=== PATIENT | male | born 1955 | race Caucasian/White ===

== ENCOUNTER → 2016-09-10 | Outpatient (CLI) | payer OTHER ==
[~2016-09-10] MED LIST: ADVINUNK INH; ALBU1AER9 INH; ALL300 PO; AVD5 PO; CLC100 PO; CLC6 PO; GLC500 PO; MTRUNK PO; PRCUNK PO; SIMV40TA2 PO
[2016-09-10 09:32] LABS: BASO % 0.7 %; BASO ABS # 0.03 K/uL (0-0.2); COMPLETE YES; EOS % 6.3 %; HEMATOCRIT 41.3 % (42-52); IG% 0.2 %; LYMPH ABS # 0.78 K/uL (1.2-3.4); MEAN CELL VOLUME 90.6 fL (80-100); MEAN CORPUSCULAR HEMOGLOBIN 29.8 pg (25-34); MEAN CORPUSCULAR HGB CONC 32.9 g/dl (32-36); MEAN PLATELET VOLUME 9.8 fL (7.4-10.4); MONO % 8.3 %; NEUT % 67.5 %; PLATELET COUNT 231 K/uL (130-400); RED BLOOD COUNT 4.56 M/uL (4.7-6.1); WHITE BLOOD COUNT 4.58 K/uL (4.8-10.8)
[2016-09-10 09:44] LABS: ALT/SGPT 22 U/L (12-78); AST/SGOT 17 U/L (15-37); BLOOD UREA NITROGEN 21 mg/dl (7-18); BUN/CREATININE RATIO 22.1 (10-20); CARBON DIOXIDE 26 mmol/L (21-32); CHLORIDE 106 mmol/L (98-107); CHOLESTEROL 140 mg/dl (0-200); CREATININE 0.94 mg/dl (0.60-1.40); GLUCOSE 157 mg/dl (70-99); POTASSIUM 4.3 mmol/L (3.5-5.1); SODIUM 140 mmol/L (136-145); TRIGLYCERIDES 124 mg/dl (0-150); URIC ACID 4.2 mg/dl (2.6-7.2); VERY LOW DENSITY LIPOPROT CALC 25 mg/dl
[2016-09-10 09:45] LABS: ALB/GLOB RATIO 1.2 (0.9-2); ALKALINE PHOSPHATASE 61 U/L (45-117); CHOLESTEROL/HDL RATIO 2.9; HDL CHOLESTEROL 48 mg/dl; LDL CHOLESTEROL CALCULATED 67 mg/dl
[2016-09-10 09:49] LABS: ESTIMATED AVERAGE GLUCOSE 157 mg/dl; HA1C FLAG Normal (Normal)
[2016-09-10 09:54] LABS: CALCIUM 8.8 mg/dl (8.5-10.1)
[2016-09-10 10:09] LABS: RATIO 4.7 mcg/mg (0-30.0)
== END | disposition home or self-care (01) ==
LOC: C.LAB 08:19
PROVIDERS: ATTEND Internal Medicine Pulmonary Disease
DX: J45.909 Unspecified asthma, uncomplicated (principal); J30.9 Allergic rhinitis, unspecified; M10.00 Idiopathic gout, unspecified site; E11.9 Type 2 diabetes mellitus without complications; E78.5 Hyperlipidemia, unspecified

== ENCOUNTER → 2017-03-15 | Outpatient (CLI) | payer OTHER ==
[2017-03-15 10:23] LABS: ESTIMATED AVERAGE GLUCOSE 151 mg/dl; HA1C FLAG Normal (Normal)
[2017-03-15 10:31] LABS: ALKALINE PHOSPHATASE 63 U/L (45-117); ALT/SGPT 23 U/L (12-78); AST/SGOT 14 U/L (15-37); BLOOD UREA NITROGEN 14 mg/dl (7-18); BUN/CREATININE RATIO 15.6 (10-20); CALCIUM 8.6 mg/dl (8.5-10.1); CARBON DIOXIDE 28 mmol/L (21-32); CHLORIDE 104 mmol/L (98-107); CREATININE 0.91 mg/dl (0.60-1.40); GLUCOSE 153 mg/dl (70-99); HDL CHOLESTEROL 48 mg/dl; POTASSIUM 4.1 mmol/L (3.5-5.1); SODIUM 137 mmol/L (136-145)
[2017-03-15 10:37] LABS: CHOLESTEROL 154 mg/dl (0-200); CHOLESTEROL/HDL RATIO 3.2; LDL CHOLESTEROL CALCULATED 63 mg/dl; TRIGLYCERIDES 213 mg/dl (0-150); VERY LOW DENSITY LIPOPROT CALC 43 mg/dl
== END | disposition home or self-care (01) ==
LOC: C.LAB 07:17
PROVIDERS: ATTEND Internal Medicine Pulmonary Disease
DX: D86.9 Sarcoidosis, unspecified (principal); E11.9 Type 2 diabetes mellitus without complications; E78.5 Hyperlipidemia, unspecified; J30.9 Allergic rhinitis, unspecified

== ENCOUNTER → 2017-05-20 | Outpatient (CLI) | payer OTHER ==
[2017-05-20 09:56] LABS: BLOOD UREA NITROGEN 15 mg/dl (7-18); CREATININE 0.86 mg/dl (0.60-1.40)
== END | disposition home or self-care (01) ==
LOC: C.LAB 07:14
PROVIDERS: ATTEND Urology
DX: R97.20 Elevated prostate specific antigen [PSA] (principal)

== ENCOUNTER → 2017-05-31 | Outpatient (CLI) | payer OTHER ==
[~2017-05-31] MED LIST changes: +GADAVIST IV PRN
--- NOTE | 2017-05-31 13:22 | DIAGNOSTIC IMAGING REPORT ---
PROSTATE MRI COMBO CLINICAL HISTORY: 62 years-old Male presenting with R97.20. PSA 4 ng/mL. TECHNIQUE: Multisequence, multiplanar MR imaging of the prostate was performed before and after the administration of intravenous contrast. Additional postprocessing was performed on a separate NuORDER workstation by the radiologist for 3-D volumetric segmentation of the prostate and contouring of region(s) of interest (JERRY) for targeting. IV contrast: 7 cc intravenous Gadavist COMPARISON: None. FINDINGS: Prostate: The prostate measures 4.6 x 3.6 x 3.9 cm (DynaCAD prostate boundary segmentation volume 34.6 mL). Moderate changes of benign prostatic hyperplasia. Precontrast T1 weighted imaging demonstrates no evidence of intrinsic T1 hyperintensity to suggest hemorrhage. Suspicious lesion(s) described below: Lesion (DynaCAD JERRY) 1: Location: Bilateral posteromedial peripheral zone at the apex. Midline lesion Size: 14 mm (as measured on ADC for PZ lesion and T2WI for TZ lesion) T2W: 4. Circumscribed, homogeneous moderately hypointense lesion. The lesion abuts the prostatic capsule DWI: 4. Focal markedly hypointense on ADC and markedly hyperintense on high b-value DWI. DCE: Positive. Focal enhancement corresponding to a suspicious finding, earlier or contemporaneous with adjacent normal tissue. PI-RADS: 4. Clinically significant cancer is likely to be present. Seminal vesicles normal. Bladder: Normal. Bowel: Visualized portion of the rectum normal. Peritoneum: No free fluid in the pelvis. Lymph nodes: No lymphadenopathy in the visualized portion of the pelvis. Vasculature: Iliac vessels patent. Abdominal wall: Normal. Osseous structures: Normal bone marrow signal intensity. IMPRESSION: 1. 14 mm mm lesion in the midline posterior peripheral zone at the apex. PI-RADS: 4. Clinically significant cancer is likely to be present. This lesion has been segmented for targeted biopsy. 2. Benign prostatic hyperplasia. Electronically signed by: Francisco Javier Colin M.D. 05/31/2017 1:20 PM Dictated Date/Time: 05/31/2017 12:56 PM
== END ==
LOC: C.MRIBC 10:52
PROVIDERS: ATTEND Urology
DX: R97.20 Elevated prostate specific antigen [PSA] (principal); N40.0 Benign prostatic hyperplasia without lower urinary tract symptoms

== ENCOUNTER → 2017-07-15 | Outpatient (CLI) | payer OTHER ==
[~2017-07-15] MED LIST changes: -GADAVIST IV PRN
== END | disposition home or self-care (01) ==
LOC: C.PATHSPEC 17:35
PROVIDERS: ATTEND Urology
DX: C61 Malignant neoplasm of prostate (principal)

== ENCOUNTER → 2017-08-02 | Outpatient (CLI) | payer OTHER ==
--- NOTE | 2017-08-02 11:41 | DIAGNOSTIC IMAGING REPORT ---
WHOLE-BODY NUCLEAR BONE SCAN CLINICAL HISTORY: Prostate cancer. COMPARISON STUDY: Abdominal CT dated 07/18/2013.. TECHNIQUE: Three hours following the IV administration of 24.4 mCi of technetium 99m MDP, whole body nuclear bone scan was performed in the anterior and posterior projections. FINDINGS: There is no abnormal osseous tracer deposition identified typical in appearance for bony metastatic disease. Typically degenerative uptake is identified in the shoulders, hips, knees, ankles, and metatarsophalangeal joints. There is expected excreted activity within the renal collecting system and bladder. A small amount of extravasated tracer is noted in the left vertebral fossa. IMPRESSION: There is no abnormal tracer deposition identified typical in appearance for osseous metastatic disease. Electronically signed by: Ifeanyi Mora M.D. 08/02/2017 11:40 AM Dictated Date/Time: 08/02/2017 11:36 AM
== END | disposition home or self-care (01) ==
LOC: C.NUCL 07:49
PROVIDERS: ATTEND Urology
DX: C61 Malignant neoplasm of prostate (principal)

== ENCOUNTER 2017-08-26 07:51 | Inpatient (IN) | payer OTHER ==
--- NOTE | 2017-08-10 10:52 | History and Physical: Surg Cnt ---
History & Physical Date August 10, 2017. (Mohini Iniguez PA-C) Chief Complaint Preoperative clearance for robotic prostatectomy (Mohini Iniguez PA-C) History of Present Illness Pt. is a 62 y.o. male who was recently diagnosed with prostate cancer and is following with Urology. He is scheduled for a robotic prostatectomy, possible open, possible lymph node dissection and suprapubic tube placement. He presents for preoperative clearance. He has had prior surgery without complication. He has tolerated anesthesia well in past. He has no personal or family history of thromboembolic complication. Does carry history of asthma which is controlled with Dulera. He rarely uses a rescue inhaler. In May after dust exposure he did develop asthma symptoms which she treated with a steroid pack. He has had no ER visits or hospitalizations associated with his asthma. His ROS is positive today for urinary hesitancy, occasional SOB due to asthma, and a sore left shoulder. He denies fever, chills, appetite changes, weight loss, cough, chest pain, abdominal pain, nausea, vomiting, numbness/tingling, lower extremity edema, skin changes, bleeding problems, or mood disturbance. (Mohini Iniguez PA-C) Past Medical/Surgical History Allergic rhinitis, asthma, BPH, dyslipidemia, esophageal reflux, Schatzki's ring , osteoarthritis, nephrolithiasis, gout, sarcoidosis, and type 2 DM. (Mohini Iniguez PA-C) Additional History Hepatic Disease: No Endocrine Disorder: Yes Kidney Disease: Yes Hypertension: No Heart Disease: No Bleeding Tendencies: No Infectious Diseases: No Other: Endocrine: DM controlled with oral medications Kidney Diesease: history of nephrolithiasis (Mohini Iniguez PA-C) Allergies Coded Allergies: Penicillins (Verified Allergy, Unknown, 05/17/09) Shellfish (Verified Allergy, Unknown, anaphylaxis, 08/10/17) Home Medications Scheduled Albuterol (Proair Hfa), 1 DOSE INH PRN Allopurinol (Zyloprim *), 300 MG PO DAILY Cyclobenzaprine Hcl (Flexeril), 1 TAB PO TID Glipizide (Glipizide Er), 1 TAB PO DAILY Metformin Hcl (Glucophage), 1 TAB PO BID Mometasone Furoate-Formoterol (Dulera 200/5 Mcg), 2 PUFFS INH BID Simvastatin (Zocor), 40 MG PO QPM Miscellaneous Medications Finasteride (Finasteride) Social History Smoking Status: Never Smoker Alcohol Use: socially (Mohini Iniguez PA-C) Physical Examination Skin: warm/dry, no rash Head: normocephalic, atraumatic Neck: supple, no adenopathy, trachea midline Respiratory/Chest: lungs clear, normal breath sounds, no respiratory distress Cardiovascular: regular rate, rhythm, no edema, no murmur Abdomen / GI: normal bowel sounds, non tender Back: normal inspection Extremities: normal inspection, normal range of motion Neurologic/Psych: no motor/sensory deficits, alert, normal reflexes, oriented x 3 Addiitonal Comments: Pt. is a 62 y.o. male who presents for preoperative clearance for robotic prostatectomy on 08/26/[address] Patel. From a medical standpoint he is cleared for surgery as he is considered an acceptable and there is no absolute contraindication. He does have a history of asthma which is well controlled with Dulera and he rarely uses a rescue inhaler but he should be monitored closely for any breathing problems. (Mohini Iniguez PA-C) Diagnosis Preoperative clearance Prostate CA (Mohini Iniguez PA-C) Operation Robotic Prostatectomy (Mohini Iniguez PA-C)
[2017-08-13 08:11] VITALS: BMI 26.0
--- NOTE | 2017-08-13 08:46 | PAT Medication Instructions ---
Service Date August 13, 2017. Current Home Medication List Albuterol Hfa (Ventolin Hfa), 2 PUFFS INH Q6H PRN for PRN Allopurinol (Zyloprim), 300 MG PO QAM Finasteride (Finasteride), 5 MG PO QPM Glipizide (Glipizide Er), 1 TAB PO QPM Ibuprofen Tab (Advil), 200-600 MG PO PRN Metformin Hcl (Glucophage), 1 TAB PO BID Mometasone Furoate-Formoterol (Dulera 200/5 Mcg), 2 PUFFS INH BID Simvastatin (Zocor), 20 MG PO QAM Medication Instructions For Your Scheduled Surgery - Hold the following medications 7-10 days prior to surgery per your surgeon's instructions: Ibuprofen Tab (Advil), 200-600 MG PO PRN - Hold the following medications the morning of surgery: Metformin Hcl (Glucophage), 1 TAB PO BID - Take the following medications the morning of surgery with a sip of water: Albuterol Hfa (Ventolin Hfa), 2 PUFFS INH Q6H PRN for PRN (if needed, and bring it with you to the hospital) Allopurinol (Zyloprim), 300 MG PO QAM Mometasone Furoate-Formoterol (Dulera 200/5 Mcg), 2 PUFFS INH BID Simvastatin (Zocor), 20 MG PO QAM - Take the following medications as scheduled the night before surgery: Albuterol Hfa (Ventolin Hfa), 2 PUFFS INH Q6H PRN for PRN (if needed) Finasteride (Finasteride), 5 MG PO QPM Glipizide (Glipizide Er), 1 TAB PO QPM Metformin Hcl (Glucophage), 1 TAB PO BID Mometasone Furoate-Formoterol (Dulera 200/5 Mcg), 2 PUFFS INH BID If you have any questions please call us at [phone] or [phone] or [phone]
--- NOTE | 2017-08-13 09:34 | DIAGNOSTIC IMAGING REPORT ---
CHEST 2 VIEWS ROUTINE CLINICAL HISTORY: PAT preoperative evaluation COMPARISON STUDY: 10/09/2012 FINDINGS: Slight chronic interstitial prominence left base considered unaltered from the prior study. Lungs otherwise appear clear. Diaphragms are smooth. IMPRESSION: Negative chest. The above report was generated using voice recognition software. It may contain grammatical, syntax or spelling errors. Electronically signed by: Oskar Amaya M.D. 08/13/2017 9:33 AM Dictated Date/Time: 08/13/2017 9:33 AM
[2017-08-13 10:11] LABS: BASO % 0.9 %; BASO ABS # 0.04 K/uL (0-0.2); EOS % 6.5 %; EOS ABS # 0.29 K/uL (0-0.5); HEMOGLOBIN 12.9 g/dL (14.0-18.0); IG# 0.01 K/uL (0.00-0.02); LYMPH % 16.6 %; LYMPH ABS # 0.74 K/uL (1.2-3.4); MEAN CELL VOLUME 90.5 fL (80-100); MEAN CORPUSCULAR HEMOGLOBIN 30.7 pg (25-34); MEAN CORPUSCULAR HGB CONC 33.9 g/dl (32-36); MEAN PLATELET VOLUME 9.6 fL (7.4-10.4); MONO % 10.3 %; MONO ABS # 0.46 K/uL (0.11-0.59); NEUT % 65.5 %; NEUT ABS # 2.92 K/uL (1.4-6.5); PLATELET COUNT 196 K/uL (130-400); RED CELL DISTRIBUTION WIDTH CV 13.5 % (11.5-14.5); RED CELL DISTRIBUTION WIDTH SD 44.2 fL (36.4-46.3); WHITE BLOOD COUNT 4.46 K/uL (4.8-10.8)
[2017-08-13 11:31] LABS: CALCIUM 9.3 mg/dl (8.5-10.1); CREATININE 0.84 mg/dl (0.60-1.40); POTASSIUM 4.6 mmol/L (3.5-5.1)
[2017-08-25 16:08] VITALS: BP 149/85; PULSE 73; TEMP 36.3; O2SAT 98
[2017-08-26] VITALS (7 sets, daily range): BP systolic 86–149; BP diastolic 73–91; PULSE 73–85; TEMP 36.3–36.5; O2SAT 96–99; Ht 167.6 cm; Wt 75.1 kg
[~2017-08-26] VITALS: Ht 167.6 cm; Wt 75.1 kg
[~2017-08-26 07:51] MED LIST changes: +ACETAMINOPHEN 1000 MG/100 ML IV IV SCH; -ADVINUNK INH; -ALBU1AER9 INH; -ALL300 PO; +ALLO300T2 PO; +ATROPINE SULFATE 0.1 MG/ML 5ML SYR IV PRN; -AVD5 PO; +CEFAZOLIN 2000MG IV PUSH 15 ML IV SCH; +CEFAZOLIN: ALLERGY NOTED TO ORDERED MEDICATION SCH; -CLC100 PO; -CLC6 PO; +EpHEDrine SULFATE INJ 50 MG/ML AMP IV PRN; +FLUMAZENIL 0.1 MG/1 ML 10 ML VIAL IV PRN; -GLC500 PO; +GLIP-199 PO; +HEPARIN SOD 5000 UNIT/0.5 ML CARP SQ SCH; +HYDROmorphone INJ 0.5 MG/0.5 ML SYR IV PRN; +IBUP-103 PO; +LABETALOL HCL IV 5 MG/ML 20ML IV PRN; +LACTATED RINGER'S 1000ML 1,000 ML IV SCH; +MEPERIDINE HCL 25 MG/ML CARP IV PRN; +METF1000 PO; +MOME200A INH; -MTRUNK PO; +MoRPHine SULFATE 10 MG/ML CARP/VIAL IV PRN; +NALOXONE HCL 0.4 MG/1 ML VIAL/CARP IV PRN; +ONDANSETRON INJ 2 MG/ML 2 ML VIAL IV PRN; +PHENYLEPHRINE 100MCG/ML 5ML SYR IV PRN; -PRCUNK PO; +PRS5 PO; +SIMV20TA2 PO; -SIMV40TA2 PO; +VNTHFA/IN INH
[2017-08-26] MEDS ORDERED: ONDANSETRON INJ 2 MG/ML 2 ML VIAL ONE ×2 (08:38→14:16)
[2017-08-26] MEDS ORDERED: FENTANYL CITRATE INJ 50 MCG/1 ML 2 ML VIAL ONE ×3 (08:38→10:46)
[2017-08-26] MEDS ORDERED: LIDOCAINE HCL 2% 2 ML VIAL (20MG/ML) ONE (08:38)
[2017-08-26] MEDS ORDERED: DEXAMETHASONE SOD INJ 4 MG/ML VIAL ONE (08:38)
[2017-08-26] MEDS ORDERED: PROPOFOL IV EMULSION 10 MG/ML 20 ML VIAL ONE (08:38)
[2017-08-26] MEDS ORDERED: ROCURONIUM BROMIDE 10 MG/ML 5 ML VIAL ONE ×3 (08:38→12:14)
[2017-08-26] MEDS ORDERED: MIDAZOLAM HCL 1 MG/ML 2ML VIAL ONE (08:39)
--- NOTE | 2017-08-26 09:04 | History & Physical Bridge Note ---
H&P Re-Evaluation Bridge Note: I have examined the patient, reviewed the History & Physical and in the interval since the performance of the History & Physical I have noted the following changes of clinical significance: No changes noted
[2017-08-26] MEDS ORDERED: BUPIVACAINE 0.5 % 5 MG/1 ML MPF 30ML VIAL ONE (09:24)
[2017-08-26] MEDS ORDERED: HYDROmorphone INJ 2 MG/ML SYR/VIAL ONE (10:11)
[2017-08-26] MEDS ORDERED: FLOSEAL HEMOSTATIC MATRIX 10ML TOP ONE (12:42)
--- NOTE | 2017-08-26 13:07 | [facility] Post Operative Brief Note ---
Immediate Operative Summary Operative Date August 26, 2017. Pre-Operative Diagnosis Prostate Cancer Post-Operative Diagnosis Prostate Cancer Procedure(s) Performed Robotic assisted laparoscopic prostatectomy with bilateral pelvic lymph node dissection and insertion of suprapubic tube Surgeon Dr. Td Patel MD Newspaper Photojournalist Surgeon(s) VIVIAN Peguero Estimated Blood Loss 250ml Findings Consistent with Post-Op Diagnosis Specimens A. Minerva-prostatic fat B. Prostate and seminal vessicles C. Right pelvic lymph node D. Left pelvic lymph node Drains #10 KRISTA, 18 fr dotson, 16 fr SPT Anesthesia Type General Complication(s) none Disposition Accompanied Pt To Recover: no Disposition: Recovery Room / PACU
[2017-08-26] MEDS ORDERED: LABETALOL HCL IV 5 MG/ML 20ML ONE ×3 (13:20→13:39)
[2017-08-26] MEDS ORDERED: ONDANSETRON INJ 2 MG/ML 2 ML VIAL IV PRN (13:30)
[2017-08-26] MEDS ORDERED: HYDROmorphone INJ 0.5 MG/0.5 ML SYR IV PRN (13:30)
[2017-08-26] MEDS ORDERED: KETOROLAC TROMETHAMINE 30 MG/ML VIAL IV. PRN (13:30)
[2017-08-26] MEDS ORDERED: ALBUTEROL HFA 8 GM INHALER INH PRN (13:30)
[2017-08-26] MEDS ORDERED: OXYBUTYNIN CHLORIDE 5 MG TAB PO PRN (13:30)
[2017-08-26] MEDS ORDERED: HYDROmorphone INJ 0.5 MG/0.5 ML SYR ONE (13:39)
[2017-08-26] MEDS ORDERED: PHARMACY GLYCEMIC MGMT CONSULT PRN (14:04)
[2017-08-26] MEDS ORDERED: NovoLIN-R INSULIN PER UNIT CHARGE SQ STA (14:13)
--- NOTE | 2017-08-26 14:42 | Anesthesiology Progress Note ---
Anesthesia Post Op Note Date & Time August 26, 2017 at 14:42 Vital Signs Pain Intensity: 5 Vital Signs Past 12 Hours Date Time Temp Pulse Resp B/P (MAP) Pulse Ox O2 Delivery O2 Flow Rate FiO2 08/26/17 14:23 76 24 98 08/26/17 14:23 76 24 08/26/17 14:21 143/80 08/26/17 14:18 74 16 08/26/17 14:18 73 16 98 08/26/17 14:17 159/101 08/26/17 14:13 71 16 98 08/26/17 14:13 70 16 08/26/17 14:11 152/85 08/26/17 14:08 71 16 95 08/26/17 14:08 72 16 08/26/17 14:07 70 16 08/26/17 14:07 70 16 97 08/26/17 14:06 142/86 08/26/17 14:02 69 16 08/26/17 14:02 70 16 98 08/26/17 14:01 145/88 08/26/17 13:57 64 16 97 08/26/17 13:57 64 16 08/26/17 13:56 164/93 08/26/17 13:52 70 16 08/26/17 13:52 69 16 94 08/26/17 13:51 167/88 08/26/17 13:47 66 16 98 08/26/17 13:47 65 16 08/26/17 13:46 183/90 08/26/17 13:42 73 16 08/26/17 13:42 76 16 100 08/26/17 13:41 185/95 08/26/17 13:37 76 15 18 13:37 77 15 100 18 13:36 201/98 18 13:34 204/99 08/26/17 13:32 73 12 100 18 13:32 72 12 18 13:31 201/92 18 13:27 72 16 98 18 13:27 73 16 18 13:25 194/77 08/26/18 13:22 84 18 100 18 13:22 84 18 18 13:21 184/104 18 13:19 191/103 08/26/17 13:17 36.8 82 14 182/104 99 Oxymask 10 08/26/17 13:17 81 16 08/26/17 13:17 81 16 99 08/26/17 08:27 36.5 82 20 86/ (28) 97 Room Air Notes Mental Status: alert / awake / arousable, participated in evaluation Pt Amnestic to Procedure: Yes Nausea / Vomiting: adequately controlled Pain: adequately controlled Airway Patency, RR, SpO2: stable & adequate BP & HR: stable & adequate Hydration State: stable & adequate Anesthetic Complications: no major complications apparent
[2017-08-26 14:48] LABS: HEMATOCRIT 36.7 % (42-52); HEMOGLOBIN 12.7 g/dL (14.0-18.0); MEAN CELL VOLUME 89.7 fL (80-100); MEAN CORPUSCULAR HEMOGLOBIN 31.1 pg (25-34); MEAN PLATELET VOLUME 9.1 fL (7.4-10.4); PLATELET COUNT 230 K/uL (130-400); RED CELL DISTRIBUTION WIDTH CV 13.5 % (11.5-14.5); RED CELL DISTRIBUTION WIDTH SD 43.9 fL (36.4-46.3); WHITE BLOOD COUNT 10.69 K/uL (4.8-10.8)
[2017-08-26 14:51] LABS: MEAN CORPUSCULAR HGB CONC 34.6 g/dl (32-36)
--- NOTE | 2017-08-26 15:05 | Pharmacy Progress Note ---
Pharmacy Glycemic Short Note 2 Date of Service August 26, 2017. OUTPATIENT ANTIDIABETIC REGIMEN: * Glipizide ER 10mg PO qPM * Metformin 1000mg PO BID * HbA1c: pending w/ am labs (6.9% 03/15/17) ASSESSMENT: * Mr Ricci is a 62yo type 2 diabetic male, POD #0 s/p prostatectomy. * BSG was significantly elevated in PACU, so SQ dose of Regular insulin was ordered. * Basal/bolus insulin regimen initiated immediately upon admission to floor. * Patient is ordered a diabetic/clear liquid diet. PLAN FOR INPATIENT GLYCEMIC CONTROL: * Hold outpatient oral diabetes medications * Basal insulin * Lantus 15 units SQ x1 dose * Bolus insulin * NovoLog per scale ACHS or Q6hrs while NPO, plus 0000,0400 * Goal Range: Low 110 mg/dL - High 150 mg/dL * Correction Factor: 30 mg/dL/unit * Nutritional / Prandial insulin per carb ratio of 1 unit per 10 grams CHO consumed PLAN FOR DISCHARGE: * pending current A1c results
[2017-08-26 15:07] LABS: CREATININE 0.95 mg/dl (0.60-1.40); POTASSIUM 4.9 mmol/L (3.5-5.1)
[2017-08-26] MEDS ORDERED: INSULIN GLARGINE SOLOSTAR 100 UNITS/ML 3 ML PEN SC STA ×2 (15:57→18:24)
[2017-08-26] MEDS: ACETAMINOPHEN 500 MG TAB PO SCH (18:00)
[2017-08-26] MEDS: LACTATED RINGER'S 1000ML 1,000 ML IV SCH (18:14)
[2017-08-26] MEDS: OXYCODONE/ACETAMINOPHEN 7.5-325 TAB PO PRN ×2 (18:18→23:58)
[2017-08-26] MEDS: CEFAZOLIN IV 2,000 MG in SYRINGE 0 ML IV SCH (18:19)
[2017-08-26] MEDS: INSULIN ASPART 100 UNITS/ML 3 ML PEN SC SCH ×2 (18:31→20:41)
[2017-08-26] MEDS: HEPARIN SOD 5000 UNIT/0.5 ML CARP SQ SCH (18:32)
[2017-08-26] MEDS: DOCUSATE SODIUM 100 MG CAP PO SCH (20:36)
--- NOTE | 2017-08-26 21:42 | OPERATIVE REPORT ---
DATE OF OPERATION: 08/26/2017 PREOPERATIVE DIAGNOSIS: [place] 4+4 prostate cancer. POSTOPERATIVE DIAGNOSIS: [place] 4+4 prostate cancer. PROCEDURE: Robot-assisted laparoscopic radical retropubic prostatectomy with bilateral pelvic lymph node dissection and suprapubic tube placement. SURGEON: Dr. Td Patel. BOX LINER: VIVIAN Peguero. ANESTHESIA: General anesthesia with endotracheal intubation. ESTIMATED BLOOD LOSS: 250 mL IV FLUIDS: 1400 mL of crystalloid. SPECIMENS SENT TO PATHOLOGY: Periprosthetic fat, left pelvic lymph nodes, right pelvic lymph nodes, prostate plus seminal vesicles. DRAINS LEFT IN PLACE: Include a #10 KRISTA drain in the left lower quadrant, 18-Jamaican silicone Wright catheter to gravity drainage with 10 mL of sterile water in the balloon and a 16-Jamaican suprapubic Rutner catheter with 5 mL of sterile water in balloon. COMPLICATIONS: None. FINDINGS: Watertight anastomosis with excellent hemostasis within the pelvis. BRIEF HISTORY: Mr. Ricci is a pleasant 62-year-old male who I have seen for a new diagnosis of prostate cancer by my partner Dr. Purvis for a PSA of 4.05. Please see H and P for further details. After discussion of risks and benefits of various forms of intervention, patient has decided upon a robotic prostatectomy to manage his disease. Seeing his [place] 4 disease, pelvic lymph node dissection is planned. Patient is offered suprapubic tube preoperatively which he accepts. Intravenous cephalosporins are provided for antibiotic coverage and SCDs and subcutaneous heparin used preoperatively for DVT prophylaxis. DESCRIPTION OF PROCEDURE: Patient was properly identified and brought in to the operative suite after identification of appropriate consent on the chart, general anesthesia with endotracheal intubation was initiated and patient was prepped and draped in standard fashion for this procedure. engraver picture-out procedure was followed. A Wright catheter was placed on the sterile field and bladder was drained. Incisions were made for a fourth arm robotic template including a 12 mm supraumbilical port, 2 left-sided 7 mm robotic ports, 1 right-sided 7 mm robotic port and the five 12 mm assistant toddler teacher port. Patient was placed in Trendelenburg and robot was brought in and docked. Patient was noted to have some intra-abdominal adhesions consistent with his previous history of surgery. Using cold scissors, the adhesions were dropped and the colon was mobilized to allow for good access to the pelvis. Patient's mesh was visualized within the confines of the pelvis, carefully bypassed and the true pelvis was entered via the space of Retzius. No significant mesh or inflammation was appreciated in the true pelvis. Bladder was dropped down to the level of the endopelvic fascia and prostate was defatted. Periprostatic fat was sent for pathologic analysis. Endopelvic fascia was sharply entered bilaterally and the dorsal vein was skeletonized. This was controlled using 0 Vicryl suture on a CT1 needle with excellent hemostasis. Patient was noted to have well-defined nerve bundles on both sides which were dissected free from the prostate gland at this stage of the operation. A 30-degree down lens was used and the bladder neck was placed on traction using a ProGrasp until this was skeletonized down to the level of the Wright catheter. Bladder neck was divided and Wright catheter was used for anterior traction. Posterior bladder neck was divided and bladder was dropped down to the level of the vas deferens and seminal vesicles in the midline. Vasa were circumscribed and divided and vessels associated with the ejaculatory apparatus were controlled using a bipolar as necessary. Cold scissors were used to drop the rectum down to the level of the apex of the prostate in the midline. Seminal vesicles were noted to be dissected free intact. Attention was then turned to the prosthetic pedicles which were controlled using Weck clips and cold scissors. Nerve sparing dissection was completed on both sides down toward the level of the apex of the prostate seeing the lack of extracapsular prostatic extension on prostate MRI imaging preoperatively. After this was complete, attention was turned to the dorsal vein which was divided. The urethra was skeletonized with a good urethral length being appreciated. This was divided using cold scissors followed by division of the rectourethralis fibers. Prostate was then freed from the pelvis and placed within an EndoCatch bag for retrieval at the end of the case. Rectum was insufflated under saline irrigation with no evidence of rectal injury being noted. A small amount of FloSeal and Surgicel was placed within the pelvis for additional hemostasis. An excellent aperture, a narrow bladder neck was noted continent at the time of the operation. Attention was then turned to the pelvic lymph node dissections, which were carried out using the confines of the obturator fossa. Lymph node tissue between the external iliac vein, obturator nerve and the pelvic sidewall were dissected free in a single packet on both sides. Weck clips and cautery were used as necessary for control of lymphatics and vessels. These were able to be removed from the patient intact and sent for pathologic analysis. No significant bleeding or neurovascular injury was appreciated after completion of the dissection bilaterally. Attention was then turned to the bladder neck which was anastomosed with the urethra using a double-armed V-Loc suture. An 18-Jamaican silicone Wright catheter was visualized entering the bladder prior to completion of the anastomosis. 10 mL of sterile water was placed within the balloon and bladder was irrigated greater than 160 mL of sterile irrigant and noted to be watertight. Using a small suprapubic incision, a 16-Jamaican Rutner catheter was then passed without violating any of the implanted mesh and visualized entering the bladder with 5 mL of sterile water in balloon. Free irrigation for both catheters was noted. A #10 KRISTA drain was brought in via the fourth arm robotic port and placed within the confines of the pelvis while avoiding placing it directly over the anastomosis. Robotic instruments were removed and robot was dedocked. Camera was brought in via the 12 mm assistant toddler teacher port and string to the EndoCatch bag was brought up through the supraumbilical incision. Ports were removed and excess carbon dioxide gas was removed from the abdomen. Supraumbilical incision was enlarged sufficiently to allow for easy removal of the specimen bag and the prostate was sent for pathologic analysis. 0 Vicryl suture on a UR-5 needle was used to close the supraumbilical incision. A 2-0 silk was used to secure the #10 KRISTA drain and the suprapubic tube in place. Skin was closed with the remaining incisions using a 4-0 Monocryl suture and Dermabond dressing. Anesthesia was reversed and patient was transferred to the recovery room in stable condition. FOLLOWUP CARE: Patient will be admitted to the floor for standard postoperative management. I attest to the content of the Intraoperative Record and any orders documented therein. Any exceptions are noted below. NAN
[2017-08-27] MEDS: INSULIN ASPART 100 UNITS/ML 3 ML PEN SC SCH ×5 (00:05→17:57)
[2017-08-27] MEDS: LACTATED RINGER'S 1000ML 1,000 ML IV SCH ×4 (01:19→20:29)
[2017-08-27] MEDS: CEFAZOLIN IV 2,000 MG in SYRINGE 0 ML IV SCH ×2 (01:19→10:15)
[2017-08-27] MEDS ORDERED: INSULIN ASPART 100 UNITS/ML 3 ML PEN SC ONE (02:00)
[2017-08-27 03:30] VITALS: BP 121/75; PULSE 90; TEMP 36.7; O2SAT 94
[2017-08-27] MEDS: ACETAMINOPHEN 500 MG TAB PO SCH ×5 (06:00→23:54)
[2017-08-27] MEDS: HEPARIN SOD 5000 UNIT/0.5 ML CARP SQ SCH ×2 (06:10→20:24)
[2017-08-27 06:35] LABS: BASO % 0.1 %; BASO ABS # 0.01 K/uL (0-0.2); HEMATOCRIT 31.2 % (42-52); HEMOGLOBIN 10.6 g/dL (14.0-18.0); IG# 0.02 K/uL (0.00-0.02); LYMPH % 10.5 %; LYMPH ABS # 0.81 K/uL (1.2-3.4); MEAN CELL VOLUME 88.1 fL (80-100); MEAN CORPUSCULAR HEMOGLOBIN 29.9 pg (25-34); MEAN PLATELET VOLUME 9.2 fL (7.4-10.4); MONO % 11.1 %; MONO ABS # 0.86 K/uL (0.11-0.59); NEUT ABS # 6.04 K/uL (1.4-6.5); PLATELET COUNT 214 K/uL (130-400); RED CELL DISTRIBUTION WIDTH CV 13.3 % (11.5-14.5); RED CELL DISTRIBUTION WIDTH SD 43.1 fL (36.4-46.3); WHITE BLOOD COUNT 7.74 K/uL (4.8-10.8)
[2017-08-27 07:36] VITALS: BP 126/76; PULSE 77; TEMP 36.8; O2SAT 95
[2017-08-27 07:37] LABS: CREATININE 0.9 mg/dl (0.60-1.40); POTASSIUM 3.9 mmol/L (3.5-5.1)
--- NOTE | 2017-08-27 07:59 | Anesthesiology Progress Note ---
Anesthesia Post Op Note Date & Time August 27, 2017 at 07:59 Vital Signs Vital Signs Past 12 Hours Date Time Temp Pulse Resp B/P (MAP) Pulse Ox O2 Delivery O2 Flow Rate FiO2 08/27/17 07:36 36.8 77 16 126/76 (93) 95 Room Air 08/27/17 03:30 36.7 90 16 121/75 (90) 94 Room Air 08/26/17 22:53 36.4 85 20 142/73 (96) 96 Room Air 08/26/17 22:52 36.4 85 20 142/73 (96) 96 Room Air Notes Mental Status: alert / awake / arousable, participated in evaluation Pt Amnestic to Procedure: Yes Nausea / Vomiting: adequately controlled Pain: adequately controlled Airway Patency, RR, SpO2: stable & adequate BP & HR: stable & adequate Hydration State: stable & adequate Anesthetic Complications: no major complications apparent
[2017-08-27] MEDS ORDERED: INSULIN GLARGINE SOLOSTAR 100 UNITS/ML 3 ML PEN SC ONE (08:00)
--- NOTE | 2017-08-27 08:27 | Progress Note ---
Subjective Date of Service: August 27, 2017. Subjective Pt evaluation today including: conversation w/ patient, physical exam, chart review, lab review, review of inpatient medication list Pain: Controlled, incisional PO Intake: Nakul clears, some nausea Voiding: dotson catheter in place (SPT draining well.) 62 yo male POD#1 s/p RALRP, BPNLD, SPT, resting comfortable. He is nakul clears, improving nausea, bothersome yesterday. He reports ambulating in room today, pain controlled with meds. Review of Systems Constitutional: No fever, No chills Eyes: No worsening of vision Objective Vital Signs Date Time Temp Pulse Resp B/P (MAP) Pulse Ox O2 Delivery O2 Flow Rate FiO2 08/27/17 07:36 36.8 77 16 126/76 (93) 95 Room Air 08/27/17 03:30 36.7 90 16 121/75 (90) 94 Room Air 08/26/17 22:53 36.4 85 20 142/73 (96) 96 Room Air 08/26/17 22:52 36.4 85 20 142/73 (96) 96 Room Air 08/26/17 19:10 Room Air 08/26/17 18:53 36.3 84 16 145/91 (109) 99 Room Air 08/26/17 16:40 36.4 74 16 133/86 (102) 98 Nasal Cannula 2.0 08/26/17 16:09 36.3 75 18 145/85 (105) 96 Nasal Cannula 2.0 08/26/17 15:40 Nasal Cannula 08/26/17 15:40 Nasal Cannula 2.0 08/26/17 15:40 36.3 73 14 149/85 (106) 98 2.0 08/26/17 15:28 36.7 99 Nasal Cannula 4 08/26/17 15:22 76 16 08/26/17 15:22 76 16 97 08/26/17 15:21 135/82 08/26/17 15:17 74 16 08/26/17 15:17 72 16 97 18 15:16 133/83 08/26/17 15:12 76 16 08/26/17 15:12 77 16 97 08/26/17 15:11 142/82 08/26/17 15:07 74 16 99 08/26/17 15:07 74 16 5/17/18 15:06 139/87 5/17/18 15:02 75 16 5/17/18 15:02 74 16 97 5/17/18 15:01 131/85 5/17/18 15:00 73 13 97 5/17/18 15:00 73 13 5/17/18 14:56 138/87 5/17/18 14:55 75 16 5/17/18 14:55 75 16 97 5/17/18 14:51 145/88 517/18 14:50 75 16 98 5/17/18 14:50 74 16 5/17/18 14:46 134/85 5/17/18 14:45 72 16 96 5/17/18 14:45 73 16 5/17/18 14:43 36.7 99 Nasal Cannula 4 17/18 14:41 162/82 17/18 14:40 71 23 98 5/17/18 14:40 71 23 5/17/18 14:39 70 17 5/17/18 14:39 69 17 97 17/18 14:36 156/86 17/18 14:34 78 16 98 /17/18 14:34 78 16 /17/18 14:31 164/90 5/17/18 14:29 72 16 95 /17/18 14:29 73 16 /17/18 14:26 161/91 5/17/18 14:24 74 16 5/17/18 14:24 75 16 98 5/17/18 14:23 76 24 98 5/17/18 14:23 76 24 /17/18 14:21 143/80 517/18 14:18 74 16 5/17/18 14:18 73 16 98 5/17/18 14:17 159/101 5/17/18 14:13 71 16 98 5/17/18 14:13 70 16 5/17/18 14:11 152/85 17/18 14:08 71 16 95 5/17/18 14:08 72 16 5/17/18 14:07 70 16 5/17/18 14:07 70 16 97 5/17/18 14:06 142/86 517/18 14:02 69 16 5/17/18 14:02 70 16 98 5/17/18 14:01 145/88 5/17/18 13:57 64 16 97 08/26/17 13:57 64 16 08/26/17 13:56 164/93 08/26/17 13:52 70 16 08/26/17 13:52 69 16 94 08/26/17 13:51 167/88 08/26/17 13:47 66 16 98 08/26/17 13:47 65 16 08/26/17 13:46 183/90 08/26/17 13:42 73 16 08/26/17 13:42 76 16 100 08/26/17 13:41 185/95 08/26/17 13:37 76 15 08/26/17 13:37 77 15 100 08/26/17 13:36 201/98 08/26/17 13:34 204/99 08/26/17 13:32 73 12 100 08/26/17 13:32 72 12 08/26/17 13:31 201/92 08/26/17 13:27 72 16 98 08/26/17 13:27 73 16 08/26/17 13:25 194/77 08/26/17 13:22 84 18 100 08/26/17 13:22 84 18 08/26/17 13:21 184/104 08/26/17 13:19 191/103 08/26/17 13:17 36.8 82 14 182/104 99 Oxymask 10 08/26/17 13:17 81 16 08/26/17 13:17 81 16 99 08/26/17 08:27 36.5 82 20 86/ (28) 97 Room Air Physical Exam General Appearance: WD/WN, no apparent distress Eyes: normal inspection ENT: normal ENT inspection, hearing grossly normal Neck: supple, no adenopathy Respiratory/Chest: no respiratory distress, no accessory muscle use Cardiovascular: no JVD Abdomen: soft, + pertinent finding (appropriate incisional tenderness, c/d/i) Extremities: normal range of motion Neurologic/Psychiatric: alert, oriented x 3 Skin: normal color Laboratory Results Last 24 Hours Test 08/26/17 13:56 08/26/17 14:41 08/26/17 16:56 08/26/17 20:23 Bedside Glucose 241 mg/dl 256 mg/dl 244 mg/dl White Blood Count 10.69 K/uL Red Blood Count 4.09 M/uL Hemoglobin 12.7 g/dL Hematocrit 36.7 % Mean Corpuscular Volume 89.7 fL Mean Corpuscular Hemoglobin 31.1 pg Mean Corpuscular Hemoglobin Concent 34.6 g/dl RDW Standard Deviation 43.9 fL RDW Coefficient of Variation 13.5 % Platelet Count 230 K/uL Mean Platelet Volume 9.1 fL Sodium Level 137 mmol/L Potassium Level 4.9 mmol/L Chloride Level 105 mmol/L Carbon Dioxide Level 24 mmol/L Anion Gap 8.0 mmol/L Blood Urea Nitrogen 17 mg/dl Creatinine 0.95 mg/dl Est Creatinine Clear Calc Drug Dose 70.8 ml/min Estimated GFR () 97.7 Estimated GFR (Non- 84.3 BUN/Creatinine Ratio 17.4 Random Glucose 253 mg/dl Calcium Level 8.0 mg/dl Hepatitis C Antibody Screen NEG Test 08/26/17 23:55 08/27/17 03:59 08/27/17 06:12 Bedside Glucose 248 mg/dl 204 mg/dl White Blood Count 7.74 K/uL Red Blood Count 3.54 M/uL Hemoglobin 10.6 g/dL Hematocrit 31.2 % Mean Corpuscular Volume 88.1 fL Mean Corpuscular Hemoglobin 29.9 pg Mean Corpuscular Hemoglobin Concent 34.0 g/dl Platelet Count 214 K/uL Mean Platelet Volume 9.2 fL Neutrophils (%) (Auto) 78.0 % Lymphocytes (%) (Auto) 10.5 % Monocytes (%) (Auto) 11.1 % Eosinophils (%) (Auto) 0.0 % Basophils (%) (Auto) 0.1 % Neutrophils # (Auto) 6.04 K/uL Lymphocytes # (Auto) 0.81 K/uL Monocytes # (Auto) 0.86 K/uL Eosinophils # (Auto) 0.00 K/uL Basophils # (Auto) 0.01 K/uL RDW Standard Deviation 43.1 fL RDW Coefficient of Variation 13.3 % Immature Granulocyte % (Auto) 0.3 % Immature Granulocyte # (Auto) 0.02 K/uL Sodium Level 136 mmol/L Potassium Level 3.9 mmol/L Chloride Level 103 mmol/L Carbon Dioxide Level 27 mmol/L Anion Gap 6.0 mmol/L Blood Urea Nitrogen 15 mg/dl Creatinine 0.90 mg/dl Est Creatinine Clear Calc Drug Dose 74.8 ml/min Estimated GFR () 104.2 Estimated GFR (Non- 89.9 BUN/Creatinine Ratio 17.0 Random Glucose 159 mg/dl Calcium Level 8.0 mg/dl Assessment and Plan A/P 62 yo male POD#1 s/p RALRP, BPLND, SPT. Doing well. Increase diet and activity today. Wants dotson out, will leave SPT in. Likely DC KRISTA and DC home later today if tolerates PO diet and movement, nausea resolves DC instructions and limitations reviewed with patient. Discharge planning: home
[2017-08-27] MEDS: ALLOPURINOL 300 MG TAB PO SCH (09:00)
[2017-08-27] MEDS: SIMVASTATIN 20 MG TAB PO SCH (09:00)
[2017-08-27] MEDS: DOCUSATE SODIUM 100 MG CAP PO SCH ×2 (09:01→20:25)
[2017-08-27] MEDS ORDERED: OXYC7.5T62 PO ×2 (09:44→09:49)
[2017-08-27] MEDS ORDERED: CLC100 PO (09:44)
[2017-08-27] MEDS ORDERED: CIPR-255 PO (09:44)
[2017-08-27] MEDS ORDERED: DTR5 PO (09:44)
--- NOTE | 2017-08-27 09:47 | Discharge Instructions ---
Discharge Instructions Date of Service August 27, 2017. Admission Reason for Admission: Prostate Cancer Discharge Discharge Diagnosis / Problem: Prostate Cancer Discharge Goals Goal(s): Decrease discomfort, Improve function, Increase independence, Improve disease control, Improve nutritional status, Therapeutic intervention Activity Recommendations Activity Limitations: per Instructions/Follow-up section Shower/Bathe: tomorrow 1. Do not lift >15lbs x 6 weeks. 2. No heavy exercise x 6 weeks. You may engage in light activity such as walking and stairs as tolerated. 3. No sexual intercourse until cleared by Dr. Patel. 4. Do not drive x [address] while taking narcotics. 5. Finish all of the antibiotic you have been prescribed. 6. Immediately call our office at [phone] if your catheter is removed for any reason. 7. Follow-up as scheduled. Please call our office at [phone] if you need to reschedule for any reason. 8. You may resume ibuprofen in 5 days. . . Current Hospital Diet Patient's current hospital diet: Diabetes Type 2 Diet Discharge Diet Recommended Diet: Diabetes Type 2 Diet Procedures Procedures Performed: Robotic assisted laparoscopic prostatectomy with bilateral pelvic lymph node dissection and insertion of suprapubic tube Pending Studies Studies pending at discharge: yes List of pending studies: prostate and lymph node pathology Laboratory Results Hemoglobin A1c Test 08/27/17 06:12 Range/Units Medical Emergencies . Who to Call and When: Medical Emergencies: If at any time you feel your situation is an emergency, please call 911 immediately. . Non-Emergent Contact Non-Emergency issues call your: Urologist Call Non-Emergent contact if: temperature is above 101.5, your pain is not controlled, your pain is worsening, your pain is unusual for you, your pain is concerning you, wound has increased drainage, wound has increased redness, wound has increased pain, you have any medication questions . . "Provider Documentation" section prepared by Ashley Parra. . [place] Drug Monitoring Program Search Results: patient reviewed within database, no issues identified
[2017-08-27 10:00] LABS: HEMOGLOBIN A1C 7.2 % (4.5-5.6)
[2017-08-27 11:00] VITALS: BP 129/83; PULSE 61; TEMP 36.8; O2SAT 96
[2017-08-27] MEDS ORDERED: PROMETHAZINE HCL INJ 25 MG in SODIUM CHLORIDE 0.9% 50ML 50 ML IV PRN (11:45)
[2017-08-27] MEDS ORDERED: NURSING VERBAL MED ORDER ONE (12:30)
--- NOTE | 2017-08-27 14:04 | Pharmacy Progress Note ---
Pharmacy Glycemic Short Note 2 Date of Service August 27, 2017. OUTPATIENT ANTIDIABETIC REGIMEN: * Glipizide ER 10mg PO qPM * Metformin 1000mg PO BID * HbA1c: 7.2% (08/27/17) ASSESSMENT: 08/27/17 * Patient was hyperglycemic last evening 2/2 receiving IV dexamethasone pre-op yesterday. * Extra dose of Lantus given at bedtime last night, and re-dosed this morning. Novolog parameters tightened this morning. * BSGs have been reasonable today. 08/26/17 * Mr Ricci is a 62yo type 2 diabetic male, POD #0 s/p prostatectomy. * BSG was significantly elevated in PACU, so SQ dose of Regular insulin was ordered. * Basal/bolus insulin regimen initiated immediately upon admission to floor. * Patient is ordered a diabetic/clear liquid diet. PLAN FOR INPATIENT GLYCEMIC CONTROL: * Hold outpatient oral diabetes medications * Basal insulin * Lantus 15 units SQ x1 dose this morning * Bolus insulin * NovoLog per scale ACHS or Q6hrs while NPO, plus [id number] * Goal Range: Low 110 mg/dL - High 150 mg/dL * Correction Factor: 25 mg/dL/unit * Nutritional / Prandial insulin per carb ratio of 1 unit per 8 grams CHO consumed PLAN FOR DISCHARGE: * Patient's current A1c (7.2%) indicates reasonable glycemic control as an outpatient. * Expect that patient may resume home regimen on discharge, as long as he does not report having hypoglycemic episodes at home.
[2017-08-27 15:10] VITALS: BP 156/74; PULSE 80; TEMP 36.4; O2SAT 96
[2017-08-27] MEDS: FLUTICASONE FUROATE VILANTEROL INH SCH (15:41)
[2017-08-27] MEDS: CARBOHYDRATES FOR HYPOGLYCEMIA PO PRN ×2 (20:30→20:49)
[2017-08-27] MEDS ORDERED: GLUCOSE 10 TABS/TUBE PO PRN (20:45)
[2017-08-27] MEDS ORDERED: GLUCAGON FOR INJ 1 MG VIAL IM PRN (20:45)
[2017-08-27] MEDS ORDERED: GLUCOSE 40% GEL 15 GM TUBE PO PRN (20:45)
[2017-08-27] MEDS ORDERED: DEXTROSE 50% 50 ML SYR IV PRN (20:45)
[2017-08-27 20:51] VITALS: BP 144/72; PULSE 80
[2017-08-27] MEDS ORDERED: [UNRECOGNIZED DRUG - OTHER] SCH (21:00)
[2017-08-27 22:44] VITALS: BP 150/72; PULSE 97; TEMP 36.9; O2SAT 93
[2017-08-28] MEDS ORDERED: INSULIN ASPART 100 UNITS/ML 3 ML PEN SC ONE ×2 (02:00→08:30)
[2017-08-28] MEDS ORDERED: NURSING VERBAL MED ORDER ONE (04:15)
[2017-08-28] MEDS: ACETAMINOPHEN 500 MG TAB PO SCH ×2 (06:00→11:59)
[2017-08-28] MEDS: OXYCODONE/ACETAMINOPHEN 7.5-325 TAB PO PRN ×2 (06:21→12:03)
[2017-08-28] MEDS: HEPARIN SOD 5000 UNIT/0.5 ML CARP SQ SCH (06:24)
[2017-08-28 07:54] VITALS: BP 137/80; PULSE 90; TEMP 36.8; O2SAT 95
[2017-08-28] MEDS ORDERED: METFORMIN HCL 500 MG TAB PO SCH (08:30)
[2017-08-28 08:41] LABS: BASO % 0.3 %; BASO ABS # 0.02 K/uL (0-0.2); EOS % 1.6 %; HEMATOCRIT 29.5 % (42-52); HEMOGLOBIN 10.2 g/dL (14.0-18.0); IG# 0.01 K/uL (0.00-0.02); LYMPH % 8.9 %; LYMPH ABS # 0.57 K/uL (1.2-3.4); MEAN CELL VOLUME 89.4 fL (80-100); MEAN CORPUSCULAR HEMOGLOBIN 30.9 pg (25-34); MEAN CORPUSCULAR HGB CONC 34.6 g/dl (32-36); MEAN PLATELET VOLUME 9.2 fL (7.4-10.4); MONO ABS # 0.64 K/uL (0.11-0.59); NEUT ABS # 5.04 K/uL (1.4-6.5); PLATELET COUNT 186 K/uL (130-400); RED CELL DISTRIBUTION WIDTH CV 13.7 % (11.5-14.5); RED CELL DISTRIBUTION WIDTH SD 44.5 fL (36.4-46.3); WHITE BLOOD COUNT 6.38 K/uL (4.8-10.8)
[2017-08-28] MEDS: SIMVASTATIN 20 MG TAB PO SCH (08:54)
[2017-08-28] MEDS: ALLOPURINOL 300 MG TAB PO SCH (08:54)
[2017-08-28] MEDS: FLUTICASONE FUROATE VILANTEROL INH SCH (08:54)
[2017-08-28 09:17] LABS: CALCIUM 8.2 mg/dl (8.5-10.1); CREATININE 0.8 mg/dl (0.60-1.40); POTASSIUM 3.7 mmol/L (3.5-5.1)
[2017-08-28] MEDS: DOCUSATE SODIUM 100 MG CAP PO SCH (09:29)
--- NOTE | 2017-08-28 09:46 | Pharmacy Progress Note ---
Pharmacy Glycemic Short Note 2 Date of Service August 28, 2017. OUTPATIENT ANTIDIABETIC REGIMEN: * Glipizide ER 10mg PO qPM * Metformin 1000mg PO BID * HbA1c: 7.2% (08/27/17) Test 08/27/17 11:58 08/27/17 16:51 08/27/17 20:30 08/27/17 20:32 Bedside Glucose 181 mg/dl (70-99) 110 mg/dl (70-99) 39 mg/dl (70-99) 41 mg/dl (70-99) Test 08/27/17 20:43 08/27/17 21:01 08/28/17 01:47 08/28/17 08:05 Bedside Glucose 52 mg/dl (70-99) 95 mg/dl (70-99) 94 mg/dl (70-99) Random Glucose 97 mg/dl (70-99) Test 08/28/17 08:11 Bedside Glucose 112 mg/dl (70-99) ASSESSMENT: 08/28/17 * Patient received 45 units of insulin yesterday * Hypoglycemic episode at HS; suspect this was related to too much overall insulin as dexamethasone was wearing off * Effects of steroid should be gone at this point * Patient meets criteria to resume metformin; will hold off on sulfonylurea since this could contribute to further hypoglycemia and just utilize loose CF/ CR for Novolog * No further basal insulin 08/27/17 * Patient was hyperglycemic last evening 2/2 receiving IV dexamethasone pre-op yesterday. * Extra dose of Lantus given at bedtime last night, and re-dosed this morning. Novolog parameters tightened this morning. * BSGs have been reasonable today. 08/26/17 * Mr Ricci is a 62yo type 2 diabetic male, POD #0 s/p prostatectomy. * BSG was significantly elevated in PACU, so SQ dose of Regular insulin was ordered. * Basal/bolus insulin regimen initiated immediately upon admission to floor. * Patient is ordered a diabetic/clear liquid diet. PLAN FOR INPATIENT GLYCEMIC CONTROL: * Resume metformin 1 gm BID; continue to hold glipizide * Bolus insulin * NovoLog per scale ACHS or Q6hrs while NPO * Goal Range: Low 110 mg/dL - High 150 mg/dL * LOOSEN Correction Factor: 30 mg/dL/unit * LOOSEN Nutritional / Prandial insulin per carb ratio of 1 unit per 10 PLAN FOR DISCHARGE: * Patient's current A1c (7.2%) indicates reasonable glycemic control as an outpatient. * Expect that patient may resume home regimen on discharge, as long as he does not report having hypoglycemic episodes at home.
--- NOTE | 2017-08-28 10:07 | Progress Note ---
Progress Note Date of Service August 28, 2017. Progress Note Subjectively the patient is drastically improved from yesterday Ambulating in the puga Pain reduced No flatus yet, but nausea has ceased Tolerating clear liquids 08/28/17 08:05 Red Blood Count 3.30, Mean Corpuscular Volume 89.4, Mean Corpuscular Hemoglobin 30.9, Mean Corpuscular Hemoglobin Concent 34.6, Mean Platelet Volume 9.2, Neutrophils (%) (Auto) 79.0, Lymphocytes (%) (Auto) 8.9, Monocytes (%) (Auto) 10.0, Eosinophils (%) (Auto) 1.6, Basophils (%) (Auto) 0.3, Neutrophils # (Auto ) 5.04, Lymphocytes # (Auto) 0.57, Monocytes # (Auto) 0.64, Eosinophils # (Auto ) 0.10, Basophils # (Auto) 0.02 08/28/17 08:05 Test 08/28/17 08:05 08/28/17 08:11 White Blood Count 6.38 K/uL (4.8-10.8) Red Blood Count 3.30 M/uL (4.7-6.1) Hemoglobin 10.2 g/dL (14.0-18.0) Hematocrit 29.5 % (42-52) Mean Corpuscular Volume 89.4 fL (80-100) Mean Corpuscular Hemoglobin 30.9 pg (25-34) Mean Corpuscular Hemoglobin Concent 34.6 g/dl (32-36) Platelet Count 186 K/uL (130-400) Mean Platelet Volume 9.2 fL (7.4-10.4) Neutrophils (%) (Auto) 79.0 % Lymphocytes (%) (Auto) 8.9 % Monocytes (%) (Auto) 10.0 % Eosinophils (%) (Auto) 1.6 % Basophils (%) (Auto) 0.3 % Neutrophils # (Auto) 5.04 K/uL (1.4-6.5) Lymphocytes # (Auto) 0.57 K/uL (1.2-3.4) Monocytes # (Auto) 0.64 K/uL (0.11-0.59) Eosinophils # (Auto) 0.10 K/uL (0-0.5) Basophils # (Auto) 0.02 K/uL (0-0.2) RDW Standard Deviation 44.5 fL (36.4-46.3) RDW Coefficient of Variation 13.7 % (11.5-14.5) Immature Granulocyte % (Auto) 0.2 % Immature Granulocyte # (Auto) 0.01 K/uL (0.00-0.02) Anion Gap 6.0 mmol/L (3-11) Est Creatinine Clear Calc Drug Dose 84.1 ml/min Estimated GFR () 109.4 Estimated GFR (Non- 94.4 BUN/Creatinine Ratio 10.2 (10-20) Calcium Level 8.2 mg/dl (8.5-10.1) Bedside Glucose 112 mg/dl (70-99) No apparent distress No respiratory distress Abdomen soft, SP tube in place draining clear yellow urine KRISTA drain in place draining serosanguineous fluid -no volumes No urethral catheter Assessment and plan: Postoperative day #2 status post robotic prostatectomy DC KRISTA Advance diet DC home after lunch
[2017-08-28 10:53] VITALS: BP 137/80; PULSE 90; TEMP 36.8; O2SAT 95
== END 2017-08-28 13:31 | disposition home or self-care (01) | DRG 714 ==
LOC: C.ACU 07:51 → C.MSW 13:25 → ENRESERV 14:12
PROVIDERS: ADMIT Urology; ATTEND Urology
PROC: 0VT08ZZ Resection of Prostate, Via Natural or Artificial Opening Endoscopic (ICD-10-PCS; principal; 2017-08-26 10:00)
PROC: 8E0W8CZ Robotic Assisted Procedure of Trunk Region, Via Natural or Artificial Opening Endoscopic (ICD-10-PCS; 2017-08-26 10:00)
DX: C61 Malignant neoplasm of prostate (principal); E78.5 Hyperlipidemia, unspecified; N40.0 Benign prostatic hyperplasia without lower urinary tract symptoms; J45.909 Unspecified asthma, uncomplicated; K21.9 Gastro-esophageal reflux disease without esophagitis; Z87.442 Personal history of urinary calculi; E11.9 Type 2 diabetes mellitus without complications; Z88.0 Allergy status to penicillin

== ENCOUNTER → 2017-11-11 | Outpatient (CLI) | payer OTHER ==
[~2017-11-11] MED LIST changes: -ACETAMINOPHEN 1000 MG/100 ML IV IV SCH; -ATROPINE SULFATE 0.1 MG/ML 5ML SYR IV PRN; -CEFAZOLIN 2000MG IV PUSH 15 ML IV SCH; -CEFAZOLIN: ALLERGY NOTED TO ORDERED MEDICATION SCH; +CIPR-255 PO; +CLC100 PO; +DTR5 PO; -EpHEDrine SULFATE INJ 50 MG/ML AMP IV PRN; -FLUMAZENIL 0.1 MG/1 ML 10 ML VIAL IV PRN; -HEPARIN SOD 5000 UNIT/0.5 ML CARP SQ SCH; -HYDROmorphone INJ 0.5 MG/0.5 ML SYR IV PRN; -IBUP-103 PO; -LABETALOL HCL IV 5 MG/ML 20ML IV PRN; -LACTATED RINGER'S 1000ML 1,000 ML IV SCH; -MEPERIDINE HCL 25 MG/ML CARP IV PRN; -MoRPHine SULFATE 10 MG/ML CARP/VIAL IV PRN; -NALOXONE HCL 0.4 MG/1 ML VIAL/CARP IV PRN; -ONDANSETRON INJ 2 MG/ML 2 ML VIAL IV PRN; +OXYC7.5T62 PO; -PHENYLEPHRINE 100MCG/ML 5ML SYR IV PRN; -PRS5 PO
== END | disposition home or self-care (01) ==
LOC: C.LAB 15:09
PROVIDERS: ATTEND Nurse Practitioner Family
DX: R30.0 Dysuria (principal)

== ENCOUNTER 2023-08-05 11:07 | Observation (INO) ==
[2023-08-05 11:53] LABS: iSTAT Creatinine 0.9 mg/dl (0.6-1.3); iSTAT Hemoglobin 11.6 g/dl (14.0-18.0); iSTAT Ionized Calcium 1.25 mmol/l (1.12-1.32)
[2023-08-05 11:54] LABS: Hematocrit (blood only) 36.4 % (42.0-52.0); Hemoglobin 11.8 g/dl (14.0-18.0); Mean Corpuscular Hemoglobin 29.9 pg (25.0-34.0); Mean Corpuscular Hgb Conc 32.4 g/dL (32.0-36.0); Mean Corpuscular Volume 92.4 fL (80.0-100.0); Mean Platelet Volume 9.8 fL (9.4-12.4); Platelet Count 213 K/uL (130-400); RDW Coefficient of Variation 14.1 % (11.5-14.5); RDW Standard Deviation 47.7 fL (36.4-46.3); Red Blood Count 3.94 M/uL (4.70-6.10); White Blood Count 4.41 K/ul (4.8-10.8)
[2023-08-05 12:08] LABS: INR 0.9 (0.9-1.1); Partial Thromboplastin Ratio 0.9; Partial Thromboplastin Time 25 Seconds (21-31); Prothrombin Time 10.4 Seconds (9.0-12.0)
--- NOTE | 2023-08-05 12:09 | Emergency Department Note ---
History of Present Illness General Chief complaint: TIA Symptoms Stated complaint: REF BY DOC,NUMBNESS L SIDE Time Seen by Provider: 08/05/23 11:53 History of Present Illness 68-year-old male presents emergency department with a 28-hour history of tingling in the left upper extremity left lower extremity. Patient states that started with tingling in his left hand and then spread to his left arm and into his left lower extremity. Patient states he is having problems with fine motor coordination in the left hand. Patient's had a prior history of cervical problems but no tingling in his arms. Patient denies slurred speech or blurred vision. Patient denies facial droop. Patient denies headache or neck pain prior to this event. He is not currently on any anticoagulation. No prior history of TIA or CVA. Home Medications Medication Instructions Recorded Confirmed Type cholecalciferol (vitamin D3) 25 1,000 units PO QAM 07/18/18 08/05/23 History mcg (1,000 unit) capsule vitamin E (dl, acetate) 180 mg 400 units PO QAM 07/18/18 08/05/23 History (400 unit) capsule pen needle, diabetic 31 gauge x #100 ea 07/13/22 08/05/23 Rx 3/16" (BD Ultra-Fine Mini Pen Needle) metformin 1,000 mg tablet See Rx Instructions .Route 10/08/22 08/05/23 Rx .COMPLEX #180 tabs fluticasone furoate 200 See Rx Instructions .Route 11/09/22 08/05/23 Rx mcg-vilanterol 25 mcg/dose .COMPLEX ##60 inhalation powder (Breo Ellipta) blood sugar diagnostic (OneTouch #100 ea 11/17/22 08/05/23 Rx Verio test strips) lancets 30 gauge (OneTouch [place]cher 01/07/23 08/05/23 History Lancets) allopurinol 300 mg tablet See Rx Instructions .Route 03/11/23 08/05/23 Rx .COMPLEX #90 tabs albuterol sulfate 90 mcg/actuation 2 puff inhalation Q4H PRN 06/21/23 08/05/23 Rx aerosol inhaler shortness of breath or wheezing #6.7 grams mometasone-formoterol HFA 200 2 puff inhalation BID #1 inhaler 06/21/23 08/05/23 Rx mcg-5 mcg/actuation aerosol inhaler (Dulera) simvastatin 40 mg tablet 40 mg PO QPM #90 tabs 07/08/23 08/05/23 Rx insulin glargine 100 unit/mL (3 17 unit (0.17 mL) subcut QAM #15 mL 07/21/23 08/05/23 Rx mL) subcutaneous pen (Lantus Solostar U-100 Insulin) Allergies Allergy/AdvReac Type Severity Reaction Status Date / Time shellfish derived Allergy Severe anaphylaxis Verified 08/05/23 10:20 Penicillins Allergy Unknown Unknown, Verified 08/05/23 10:20 as child Past Med/Surg History Medical History Chronic anemia Kidney stone History of prostate cancer hx surgery + radiation - approx 5 years ago Recurrent UTI Gout No current issues Sarcoidosis Previous history per PCP Dx ~ (previously on prednisone), no current issues Type 2 diabetes mellitus Asthma Dyslipidemia Acquired deviated nasal septum Prostate cancer In remission Surgical History History of cystoscopy Status post prostatectomy History of esophageal dilatation History of esophagogastroduodenoscopy (EGD) History of radical prostatectomy History of hernia repair bilateral inguinal hernia repair History of colonoscopy Family History Mother , ovarian cancer, at age No problems noted. Brother , history of diabetes, age 60 No problems noted. Brother Type 2 diabetes mellitus Heart trouble Mother , heart attack age 58 No problems noted. Other No family history of adverse response to anesthesia Social History Smoking Status: Never smoker Second Hand Exposure: No; Do You Dip or Chew Tobacco: No; Hx Alcohol Use: Yes Alcohol type: beer, wine and hard liquor Hx Substance Use: No Preferred Language: Ukrainian Communication Ability: Effective Visual Impairment: No Limitations Hearing Ability: Normal Rolled Ham Lacer Required: No Beliefs That Will Affect Care: None marital status: Current Living Situation: Spouse current occupational status: retired Feels Safe at Home: Yes Assistive Devices: Glasses and Hearing Aid - Bilateral Review of Systems A total of 10 systems reviewed and were otherwise negative Constitutional: no fever Neurologic: + tingling Physical Exam Vital Signs Vital Signs - 24 hr 08/05/23 11:15 08/05/23 11:48 08/05/23 12:00 Temperature 36.2 C L Temperature Source Temporal Artery Scan Pulse Rate 52 L 61 58 L Pulse Rate from SpO2 Sensor 58 L Pulse Rhythm Regular Pulse Strength Normal Respiratory Rate 16 17 Respiratory Effort / Characteristics Non-Labored Spontaneous Respiratory Depth Normal Respiratory Pattern Regular Blood Pressure 158/73 H 166/76 H Blood Pressure Mean 101 106 Blood Pressure Position Sitting Pulse Oximetry 97 97 Oxygen Delivery Method Room Air Room Air Sepsis Recent Fever Within 48 Hours No Sepsis New/Unexplained Change in Mental Status No Sepsis Action Taken by Nursing No Action Required 08/05/23 12:30 08/05/23 13:00 08/05/23 13:30 Temperature Temperature Source Pulse Rate 50 L 52 L 59 L Pulse Rate from SpO2 Sensor 49 L 54 L 63 Pulse Rhythm Pulse Strength Respiratory Rate 15 14 14 Respiratory Effort / Characteristics Respiratory Depth Respiratory Pattern Blood Pressure 149/65 H 169/80 H 149/77 H Blood Pressure Mean 93 109 101 Blood Pressure Position Pulse Oximetry 97 97 96 Oxygen Delivery Method Room Air Room Air Room Air Sepsis Recent Fever Within 48 Hours Sepsis New/Unexplained Change in Mental Status Sepsis Action Taken by Nursing GENERAL: Patient is awake alert in no acute distress patient is resting comfortably and showing no signs of anxiety EYES: The conjunctivae are clear. The pupils are round and reactive. EARS, NOSE, MOUTH AND THROAT: The nose is without any evidence of any deformity. Mucous membranes are moist. Tongue is midline. NECK: The neck is nontender and supple. Full range of motion nontender midline RESPIRATORY: Normal respiratory effort is noted there is no evidence of wheezing rhonchi or rales CARDIOVASCULAR: Regular rate and rhythm noted there no murmurs rubs or gallops normal S1 normal S2. GASTROINTESTINAL: The abdomen is soft. Abdomen is nontender. BACK: No midline tenderness or or step-off noted range of motion in flexion extension as well as rotation no signs of muscle spasm noted MUSCULOSKELETAL/EXTREMITIES: There is no evidence of gross deformity full range of motion is noted in the hips and shoulders. SKIN: There is no obvious evidence of any rash. There are no petechiae, pallor or cyanosis noted. NEUROLOGIC: Patient is awake alert and oriented x3 strength is symmetric; NIH 2; patient appears to have a slight left-sided facial droop; patient has some sensory deficits on the left upper extremity and left lower extremity in comparison to the right. He has full range of motion. GCS of 15 Course Reevaluation(s) Reevaluation #1: Patient resting in no distress no changes Time: 14:43 Consultations Consultation #1: [facility]: [facility] Medical Decision Making Medical Records Attestation: I reviewed the patient's medical records. Home Medications Current Medication List: was personally reviewed by me Laboratory Data Attestation: I reviewed the patient's lab results. Labs interpreted by me are unremarkable 08/05/23 11:30 08/05/23 11:30 Lab Results 08/05/23 08/05/23 Range/Units 11:30 11:38 WBC 4.41 L (4.8-10.8) K/ul RBC 3.94 L (4.70-6.10) M/uL Hgb 11.8 L (14.0-18.0) g/dl POC Hgb 11.6 L (14.0-18.0) g/dl Hct 36.4 L (42.0-52.0) % POC Hct 34 L (42-52) % MCV 92.4 (80.0-100.0) fL MCH 29.9 (25.0-34.0) pg MCHC 32.4 (32.0-36.0) g/dL RDW Std Deviation 47.7 H (36.4-46.3) fL RDW Coeff of Bisi 14.1 (11.5-14.5) % Plt Count 213 (130-400) K/uL MPV 9.8 (9.4-12.4) fL PT 10.4 (9.0-12.0) Seconds INR 0.9 (0.9-1.1) APTT 25 (21-31) Seconds PTT Ratio 0.9 POC Sodium 140 (135-144) mmol/L Sodium 140 (136-145) mmol/L POC Potassium 4.0 (3.3-5.0) mmol/L Potassium 4.0 (3.5-5.1) mmol/L POC Chloride 104 (101-112) mmol/L Chloride 106 (98-107) mmol/L Carbon Dioxide 27 (21-32) mmol/L POC Total CO2 27 (24-31) mmol/L Anion Gap 7 (3-11) POC Anion Gap 14.0 L (16-25) mmol/L POC BUN 19 H (7-18) mg/dl BUN 19 (6-23) mg/dl Creatinine 0.86 (0.6-1.4) mg/dl POC Creatinine 0.9 (0.6-1.3) mg/dl Est Cr Clr Drug Dosing 72.1 ml/min Est GFR ( Amer) 101.8 ml/min Est GFR (Non-Af Amer) 87.9 ml/min BUN/Creatinine Ratio 22.1 H (10-20) Glucose 94 (70-99(Fasting)) mg/dl POC Glucose (other) 91 (70-99) mg/dl Calcium 9.7 (8.6-10.3) mg/dl POC Ioniz Calcium Ana 1.25 (1.12-1.32) mmol/l Magnesium 1.7 (1.7-2.4) mg/dl Total Bilirubin 0.4 (0.2-1.0) mg/dl AST 22 (13-39) U/L ALT 19 (7-52) U/L Alkaline Phosphatase 49 (34-104) U/L Total Protein 7.1 (6.0-8.3) gm/dl Albumin 4.5 (3.4-5.0) gm/dl Globulin 2.6 (2.5-4.0) gm/dl Albumin/Globulin Ratio 1.7 (0.9-2) Imaging Data Attestation: I personally reviewed and interpreted this imaging study as follows: My Impression: Chest x-ray interpreted by me negative for infiltrate Radiologist's Impression: Chest X-Ray 08/05/23 11:19 XR chest 1V portable CLINICAL HISTORY: stroke alert COMPARISON STUDY: Chest radiograph April 30, 2022. FINDINGS: Lung volumes are normal. Lungs are clear. There is no pneumothorax or pleural effusion. Cardiac size is normal. Mediastinal contours are normal. There is no evidence for pulmonary edema. IMPRESSION: No acute cardiopulmonary findings. ACT 112: Negative or not required by law. Electronically signed by: Guero Weaver M.D. 08/05/2023 1:[address] 08/05/23 11:19 CT head/brain wo con CLINICAL HISTORY: 68 years-old Male with Neuro deficit, acute, stroke suspected. Acute strokelike symptoms TECHNIQUE: Multiple axial CT images of the head were obtained without contrast. A dose lowering technique was utilized adhering to the principles of ALARA. CT DOSE: 547.75 mGy.cm COMPARISON: None FINDINGS: No acute intracranial hemorrhage, midline shift, intracranial mass, hydrocephalus, territorial ischemia or abnormal extra-axial collection. Involutional changes with suggestion of mild chronic microvascular ischemic disease. The calvarium is intact. Mild mucosal thickening of the ethmoid sinuses. The mastoid air cells are generally clear. IMPRESSION: No acute intracranial abnormality identified. ACT 112: Negative or not required by law. The above report was generated using voice recognition software. It may contain grammatical, syntax or spelling errors. Electronically signed by: Carlos Hsieh M.D. 08/05/2023 12:27 PM ECG Data Attestation: I personally reviewed and interpreted this ECG as follows: Additional Comments: EKG interpreted by me sinus bradycardia rate of 52, no obvious ST segment elevation or depression, normal intervals, normal axis MDM Narrative Medical decision making differential diagnosis includes TIA, CVA, intracranial hemorrhage, electrolyte disturbance, radiculopathy Plan is to check labs, EKG, CT brain Patient is greater than 24 hours post the initial event, the patient's not a TNK candidate Patient is also severely allergic to shellfish with anaphylaxis. Will hold off on CT angios at this time Case was discussed with the [facility] hospitalist for admission for TIA symptoms. Impression & Plan TIA (transient ischemic attack) Discharge Plan Visit Data Chief Complaint: TIA Symptoms Stated Complaint: REF BY DOC,NUMBNESS L SIDE ED Provider: Pedro Beebe Discharge Problem: TIA (transient ischemic attack) Patient Disposition: Admitted As Inpatient Forms Stand Alone Forms: [facility] Prescriptions Prescriptions: No Action vitamin E (dl, acetate) 400 unit capsule 400 units PO QAM cholecalciferol (vitamin D3) 1,000 unit capsule 1,000 units PO QAM (DME) pen needle, diabetic [BD Ultra-Fine Mini Pen Needle] 31 gauge x 3/16" needle See Rx Instructions .ROUTE .MEDSUPPLY Qty: 100 3RF Rx Instructions: use 1 needle daily metformin 1,000 mg tablet See Rx Instructions .ROUTE .COMPLEX Qty: 180 3RF Dose Instruction: TAKE 1 TABLET BY MOUTH TWICE A DAY Rx Instructions: TAKE 1 TABLET BY MOUTH TWICE A DAY fluticasone furoate-vilanterol [Breo Ellipta] 200-25 mcg/dose blister with device See Rx Instructions .ROUTE .COMPLEX Qty: 60 11RF Dose Instruction: INHALE ONE PUFF DAILY WITH A RINSE OF MOUTH AFTERWARDS. Rx Instructions: INHALE ONE PUFF DAILY WITH A RINSE OF MOUTH AFTERWARDS. (DME) OneTouch Verio test strips Strip See Rx Instructions .ROUTE .MEDSUPPLY Qty: 100 5RF Rx Instructions: Test blood sugar once daily allopurinol 300 mg tablet See Rx Instructions .ROUTE .COMPLEX Qty: 90 3RF Dose Instruction: TAKE 1 TABLET BY MOUTH EVERY DAY IN THE MORNING Rx Instructions: TAKE 1 TABLET BY MOUTH EVERY DAY IN THE MORNING simvastatin 40 mg tablet 40 mg PO QPM Qty: 90 3RF insulin glargine [Lantus Solostar U-100 Insulin] 100 unit/mL (3 mL) insulin pen 17 unit subcut QAM Qty: 15 3RF albuterol sulfate 90 mcg/actuation HFA aerosol inhaler 2 puff inhalation Q4H PRN (Reason: shortness of breath or wheezing) Qty: 6.7 5RF Dulera 200-5 mcg/actuation HFA aerosol inhaler 2 puff inhalation BID Qty: 1 11RF (DME) lancets [OneTouch Delica Lancets] 30 gauge misc See Rx Instructions .ROUTE .MEDSUPPLY Rx Instructions: Test blood sugar once daily Referrals Referrals: Jason Lunsford MD [Primary Care Provider] -
[2023-08-05 12:27] LABS: Albumin Level 4.5 gm/dl (3.4-5.0); Bilirubin,Total 0.4 mg/dl (0.2-1.0); Calcium 9.7 mg/dl (8.6-10.3); Magnesium 1.7 mg/dl (1.7-2.4)
--- NOTE | 2023-08-05 12:28 | CT Scan Report ---
CT head/brain wo con CLINICAL HISTORY: 68 years-old Male with Neuro deficit, acute, stroke suspected. Acute strokelike sy mptoms TECHNIQUE: Multiple axial CT images of the head were obtained without contrast. A dose lowering tech nique was utilized adhering to the principles of ALARA. CT DOSE: 547.75 mGy.cm COMPARISON: None FINDINGS: No acute intracranial hemorrhage, midline shift, intracranial mass, hydrocephalus, territorial ischem ia or abnormal extra-axial collection. Involutional changes with suggestion of mild chronic microvasc ular ischemic disease. The calvarium is intact. Mild mucosal thickening of the ethmoid sinuses. The mastoid air cells are g enerally clear. IMPRESSION: No acute intracranial abnormality identified. ACT 112: Negative or not required by law. The above report was generated using voice recognition software. It may contain grammatical, syntax o r spelling errors. Electronically signed by: Carlos Hsieh M.D. 08/05/2023 12:27 PM
[2023-08-05 12:33] LABS: Albumin Globulin Ratio 1.7 (0.9-2); BUN Creatinine Ratio 22.1 (10-20); Creatinine Clr Calc Pharmacy 72.1 ml/min; Est GFR (African American) 101.8 ml/min; Est GFR (Non-African American) 87.9 ml/min; Globulin 2.6 gm/dl (2.5-4.0); Total Protein 7.1 gm/dl (6.0-8.3)
--- NOTE | 2023-08-05 13:23 | History & Physical Report ---
Date of Service August 05, 2023 Assessment & Plan (1) Stroke-like symptoms: Plan: Left-sided paresthesias from the head to feet that began the morning of 08/03 and have been constant No hx of CVA/TIAs No slurred speech, facial droop, or unilateral deficits appreciated Head CT revealed no acute intracranial abnormalities Brain MRI, brain MRA, and bilateral carotid Dopplers ordered, pending Neurochecks q4h Patient passed dysphagia screen; okay to eat A.m. CBC, BMP, mag, fasting lipid panel, A1c (2) Type 2 diabetes mellitus: Plan: Last A1c at 7.4% on 06/16/23 Glucose 94 on admission Hold metformin Patient is normally on Lantus 17u QAM Will switch to Lantus 8u BID while inpatient SSI; with target BSG range 110-140mg/dL, CF 45, carb ratio 15 T2DM diet BSG ACHS Adjust regimen as needed (3) Dyslipidemia: Plan: Continue simvastatin Follow a.m. fasting lipid panel (4) Prostate cancer: Plan: In remission Plan Disposition: Obs -admit to PCU telemetry Full code T2DM diet VTE PPx: SCDs (hold chemical DVT PPx in the setting of acute strokelike symptoms; pending brain MRI) History of Present Illness Chief Complaint: TIA symptoms Primary Care Provider: Jason Lunsford MD Te is a 68-year-old male with PMH of T2DM, sarcoidosis, GERD, gout, asthma, dyslipidemia, prostate cancer, urinary incontinence, and cervical spine stenosis. He presented for left-sided paresthesias from head to feet that have been present/constant since yesterday morning on 08/03. Patient reports he woke up around 6 AM yesterday and felt numbness in his left hand and arm. Approximately 1 hour later, the numbness extended to his left scalp/face all the way down to his left leg. No prior experiences like this 1. He does note he has chronic left thumb and index finger numbness (which has been present for the past several years) due to a pinched nerve in his neck. No history of TIAs/CVAs to the patient's knowledge. He denies any facial droop, slurred speech, or unilateral weakness. Patient took all of his regular morning medications today; no recent change in medications. He does not take blood thinners or aspirin. He denies any recent falls, syncopal episodes, or injuries to the head or neck. He does note that he has a pretty severe shellfish/iodine allergy (vomiting, neck swelling, and rash). He denies smoking and tobacco use. He does endorse occasional alcohol use; beer; nothing last night, but the night prior he had 1-2 beers. Denies any recent rashes or tick bites. He is hypertensive at 169/80 and mildly bradycardic at 52 bpm at time of admission; vitals otherwise stable. ED course: ROS: Patient endorses constant numbness in the left face/arm/leg. Patient denies fever, chills, night-sweats, dizziness, lightheadedness, headache, changes in vision, facial droop, slurred speech, unilateral weakness, chest pain, chest palpitations, SOB, pleuritic CP, cough, abdominal pain, N/V/D, change in urinary or bowel habits, or weakness/pain in the arms or legs bilaterally. Allergies Allergy/AdvReac Type Severity Reaction Status Date / Time shellfish derived Allergy Severe anaphylaxis Verified 08/05/23 10:20 Penicillins Allergy Unknown Unknown, Verified 08/05/23 10:20 as child Home Medications Medication Instructions Recorded Confirmed Type cholecalciferol (vitamin D3) 25 1,000 units PO QAM 07/18/18 08/05/23 History mcg (1,000 unit) capsule vitamin E (dl, acetate) 180 mg 400 units PO QAM 07/18/18 08/05/23 History (400 unit) capsule pen needle, diabetic 31 gauge x #100 ea 07/13/22 08/05/23 Rx 3/16" (BD Ultra-Fine Mini Pen Needle) metformin 1,000 mg tablet See Rx Instructions .Route 10/08/22 08/05/23 Rx .COMPLEX #180 tabs fluticasone furoate 200 See Rx Instructions .Route 11/09/22 08/05/23 Rx mcg-vilanterol 25 mcg/dose .COMPLEX ##60 inhalation powder (Breo Ellipta) blood sugar diagnostic (OneTouch #100 ea 11/17/22 08/05/23 Rx Verio test strips) lancets 30 gauge (OneTouch Delcher 01/07/23 08/05/23 History Lancets) allopurinol 300 mg tablet See Rx Instructions .Route 03/11/23 08/05/23 Rx .COMPLEX #90 tabs albuterol sulfate 90 mcg/actuation 2 puff inhalation Q4H PRN 06/21/23 08/05/23 Rx aerosol inhaler shortness of breath or wheezing #6.7 grams mometasone-formoterol HFA 200 2 puff inhalation BID #1 inhaler 06/21/23 08/05/23 Rx mcg-5 mcg/actuation aerosol inhaler (Dulera) simvastatin 40 mg tablet 40 mg PO QPM #90 tabs 07/08/23 08/05/23 Rx insulin glargine 100 unit/mL (3 17 unit (0.17 mL) subcut QAM #15 mL 07/21/23 08/05/23 Rx mL) subcutaneous pen (Lantus Solostar U-100 Insulin) Past Med/Surg History Medical History Chronic anemia Kidney stone History of prostate cancer hx surgery + radiation - approx 5 years ago Recurrent UTI Gout No current issues Sarcoidosis Previous history per PCP Dx ~ (previously on prednisone), no current issues Type 2 diabetes mellitus Asthma Dyslipidemia Acquired deviated nasal septum Prostate cancer In remission Surgical History History of cystoscopy Status post prostatectomy History of esophageal dilatation History of esophagogastroduodenoscopy (EGD) History of radical prostatectomy History of hernia repair bilateral inguinal hernia repair History of colonoscopy Family History Mother , ovarian cancer, at age No problems noted. Brother , history of diabetes, age 60 No problems noted. Brother Type 2 diabetes mellitus Heart trouble Mother , heart attack age 58 No problems noted. Other No family history of adverse response to anesthesia Social History Smoking Status: Never smoker Second Hand Exposure: No; Do You Dip or Chew Tobacco: No; Hx Alcohol Use: Yes Alcohol type: beer, wine and hard liquor Hx Substance Use: No Preferred Language: Danish Communication Ability: Effective Visual Impairment: No Limitations Hearing Ability: Normal Emergency Vehicle Operator Required: No Beliefs That Will Affect Care: None marital status: Current Living Situation: Spouse current occupational status: retired Feels Safe at Home: Yes Assistive Devices: Glasses and Hearing Aid - Bilateral Review of Systems Review of Systems: See HPI above Physical Exam Physical Exam: General: no acute distress; pleasant affect; non-toxic appearing; well- nourished; cooperative; 97% SpO2 on RA HEENT: normocephalic, atraumatic; no scleral icterus; PERRLA w/ EOMs intact; moist mucus membrane; vision and hearing grossly intact; patient notes diminished sensation in the left side of his face assessed via light touch; he exhibits ability to smile and raise eyebrows without unilateral deficits Neck: supple; no lymphadenopathy; trachea midline; patient demonstrates ability to shrug shoulders and rotate neck bilaterally against resistance without pain or dizziness Skin: warm, dry without signs of tenting; no cyanosis; no rashes, bruising, lesions, or erythema noted CV: chest wall NTP; RRR; S1/S2 normal; no murmurs/rubs/gallops; pulses intact and symmetric at radial, DP, and PT Lungs: no acute respiratory distress; symmetrical chest wall expansion; clear breath sounds across all lung kauffman w/o adventitious sounds; no wheezing ABD: Soft, NTP; BS present; no rebound/guarding; no distention MSK: no tics or fasciculations; no edema noted in the LEs b/l, nonerythematous; 5/5 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; 5/5 lower extremity strength with plantarflexion/dorsiflexion/raising legs from the bed bilaterally Neuro: A&Ox3; normal mood and affect; fluent speech; no facial droop; no slurred speech; negative pronator drift; diminished sensation in the left lower extremity, left upper extremity, and face assessed via light touch Results & Data Results & Data Vital Signs (Past 12 Hours) Vital Signs Temp Pulse Resp BP Pulse Ox O2 Del Method 08/05/23 13:00 52 L 14 169/80 H 97 Room Air 08/05/23 12:30 50 L 15 149/65 H 97 Room Air 08/05/23 12:00 58 L 17 166/76 H 97 Room Air 08/05/23 11:48 61 08/05/23 11:15 36.2 C L 52 L 16 158/73 H 97 Room Air Laboratory Results Abnormal lab results 08/05/23 08/05/23 Range/Units 11:30 11:38 WBC 4.41 L (4.8-10.8) K/ul RBC 3.94 L (4.70-6.10) M/uL Hgb 11.8 L (14.0-18.0) g/dl POC Hgb 11.6 L (14.0-18.0) g/dl Hct 36.4 L (42.0-52.0) % POC Hct 34 L (42-52) % RDW Std Deviation 47.7 H (36.4-46.3) fL POC Anion Gap 14.0 L (16-25) mmol/L POC BUN 19 H (7-18) mg/dl BUN/Creatinine Ratio 22.1 H (10-20) Diagnostic Findings Head CT 08/05/23 11:19 CT head/brain wo con CLINICAL HISTORY: 68 years-old Male with Neuro deficit, acute, stroke suspected. Acute strokelike symptoms TECHNIQUE: Multiple axial CT images of the head were obtained without contrast. A dose lowering technique was utilized adhering to the principles of ALARA. CT DOSE: 547.75 mGy.cm COMPARISON: None FINDINGS: No acute intracranial hemorrhage, midline shift, intracranial mass, hydrocephalus, territorial ischemia or abnormal extra-axial collection. Involutional changes with suggestion of mild chronic microvascular ischemic disease. The calvarium is intact. Mild mucosal thickening of the ethmoid sinuses. The mastoid air cells are generally clear. IMPRESSION: No acute intracranial abnormality identified. ACT 112: Negative or not required by law. The above report was generated using voice recognition software. It may contain grammatical, syntax or spelling errors. Electronically signed by: Carlos Hsieh M.D. 08/05/2023 12:27 PM ECG Additional Comments: ECG reveals sinus bradycardia with a sinus arrhythmia at 52 bpm; QTc 372 Code Status & VTE Plan Code Status Full code VTE Prophylaxis Plan VTE Prophylaxis will be ordered: Yes Supervising Physician Co-Signing Physician Notes Patient seen and examined, chart reviewed, case discussed with Kulwant Garcia and I agree with the assessment and plan as above except as otherwise noted Labs and images reviewed Te is seen at the bedside. He has had sudden onset waxing and waning but generally persistent qualitative paresthesias/numbness/tingling of his left face, left crown, left arm, and left lower extremity. Does have some cervical disc disease with numbness in his first and second left digits at baseline however his presenting symptoms are new. MRI/MRA show no evidence of stroke or vascular occlusion, and given ongoing persistent symptoms for several hours and that remain present even following MRI does not appear consistent with TIA. Will expand workup to include metabolic/infectious causes B12/folate/Lyme has been ordered. If all of these are negative could follow-up with nerve conduction studies. Cervical/lumbar disease which patient does have could explain his upper and lower extremity symptoms, however crown/facial numbness are atypical for this. Agree with initial assessment and management as above. On exam patient has 5/5 strength to polyethylene bag machine operator strength, elbow flexion, hip flexion, ankle dorsiflexion/plantarflexion without deficits and cranial nerves are intact. PG Care Time/CCT Total # of Minutes Spent Total Time Spent with Patient: Total time spent is greater than 50% in coordination of care (as documented) at patient's floor/unit and/or counseling patient: C[place] [address] INT INP/OBS CARE 3/75MIN Patient Type Established Medical Decision Making High Complexity Diagnoses Stroke-like symptoms R29.90 Type 2 diabetes mellitus without complication, with long-term current use of insulin E11.9; Z79.4 Diabetes mellitus complication status: without complication Diabetes mellitus half-way insulin use: with conduit bender use Dyslipidemia E78.5 Prostate cancer C61 (2) Type 2 diabetes mellitus Diabetes mellitus complication status: without complication Diabetes mellitus conduit bender insulin use: with conduit bender use Qualified Code(s): E11.9 - Type 2 diabetes mellitus without complications; 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
--- NOTE | 2023-08-05 13:29 | XRay Report ---
XR chest 1V portable CLINICAL HISTORY: stroke alert COMPARISON STUDY: Chest radiograph April 30, 2022. FINDINGS: Lung volumes are normal. Lungs are clear. There is no pneumothorax or pleural effusion. Car diac size is normal. Mediastinal contours are normal. There is no evidence for pulmonary edema. IMPRESSION: No acute cardiopulmonary findings. ACT 112: Negative or not required by law. Electronically signed by: Guero Weaver M.D. 08/05/2023 1:28 PM
[2023-08-05] MEDS ORDERED: PHARMACIST DISCHARGE MED REC CONSULT PRN (14:09)
--- NOTE | 2023-08-05 15:56 | Electrocardiogram Report ---
Test Reason : Blood Pressure : / mmHG Vent. Rate : 052 BPM Atrial Rate : 052 BPM P-R Int : 142 ms QRS Dur : 092 ms QT Int : 400 ms P-R-T Axes : 035 -04 000 degrees QTc Int : 372 ms Sinus bradycardia with sinus arrhythmia Otherwise normal ECG When compared with ECG of 30-APR-2022 11:49, No significant change was found Confirmed by Karri Gonzalez ([id number]) on 08/05/2023 3:56:26 PM Referred By: Confirmed By:Karri Gonzalez
--- NOTE | 2023-08-05 16:25 | Ultrasound Report ---
CAROTID ARTERY ULTRASOUND CLINICAL HISTORY: Stroke-like symptoms COMPARISON STUDY: None. TECHNIQUE: Real-time, grayscale, and color Doppler sonography of the carotid and vertebral arteries w as performed. Images were viewed in the transverse and longitudinal planes. FINDINGS: There is mild to moderate atherosclerotic plaque. Velocity measurements are listed below. COMMON CAROTID PEAK SYSTOLIC VELOCITY (CM/S): RIGHT 79 LEFT 90 ICA PEAK SYSTOLIC VELOCITY (CM/S): RIGHT 77 LEFT 87 Systolic ratios between the internal to common carotid arteries were normal. Antegrade flow is seen in the vertebral arteries. The external carotid arteries are patent. IMPRESSION: No evidence for a hemodynamically significant stenosis. ACT 112: Negative or not required by law. Electronically signed by: Guero Weaver M.D. 08/05/2023 4:24 PM
[2023-08-05] MEDS ORDERED: ACETAMINOPHEN 325 MG TAB PO PRN (17:15)
[2023-08-05] MEDS ORDERED: GLUCOSE 10 TAB/TUBE PO PRN (17:15)
[2023-08-05] MEDS ORDERED: GLUCOSE 40% GEL 15 GM TUBE PO PRN (17:15)
[2023-08-05] MEDS ORDERED: GLUCAGON FOR INJ 1 MG VIAL SQ PRN (17:15)
[2023-08-05] MEDS ORDERED: DEXTROSE 50% 50 ML SYRINGE IV PRN (17:15)
[2023-08-05] MEDS ORDERED: ALBUTEROL HFA 8 GM INHALER INH PRN (17:15)
[2023-08-05] MEDS ORDERED: CARBOHYDRATES FOR HYPOGLYCEMIA PO PRN (17:15)
--- NOTE | 2023-08-05 19:15 | Magnetic Resonance Report ---
MRI OF THE BRAIN WITHOUT CONTRAST CLINICAL HISTORY: Stroke-like symptoms COMPARISON STUDY: Head CT performed earlier today. TECHNIQUE: Utilizing a 1.5 Josseline magnet and dedicated coil, multiplanar, multiecho imaging of the bra in was performed without IV contrast. FINDINGS: There are no foci of restricted diffusion to suggest acute infarct. No acute intracranial h emorrhage, midline shift or mass effect is present. Ventricular system is unremarkable. Basal cistern s are patent. Flow-voids for the major intracranial vessels are present. No intracranial masses are i dentified on unenhanced exam. A few small white matter T2 hyperintense foci are doubtful significance . There is moderate ethmoid sinus mucosal thickening. There is also mild polypoid mucosal thickening of the maxillary sinuses. IMPRESSION: No acute intracranial findings. ACT 112: Negative or not required by law. Electronically signed by: Guero Weaver M.D. 08/05/2023 7:12 PM
--- NOTE | 2023-08-05 19:51 | Magnetic Resonance Report ---
MRA OF THE INTRACRANIAL CIRCULATION WITHOUT CONTRAST CLINICAL HISTORY: Stroke-like symptoms COMPARISON STUDY: Head CT performed earlier today. TECHNIQUE: Utilizing a 1.5 Josseline magnet and 3-D [id number] technique, unenhanced MRA of the intra cranial circulation was obtained. FINDINGS: The bilateral M1, M2, A1 and A2 segments are patent. No intracranial aneurysm is identified . There is no vessel occlusion within the posterior circulation. No stenoses are identified. Please n ote that the MRI of the brain will be reported separately. IMPRESSION: Unremarkable MRA of the head. ACT 112: Negative or not required by law. Electronically signed by: Guero Weaver M.D. 08/05/2023 7:50 PM
[2023-08-05] MEDS: FLUTICASONE/VILANTEROL 200/25MCG 14 PUFFS/INHALER INH SCH (20:23)
[2023-08-05] MEDS: allopurinoL 300 MG TAB PO SCH (20:26)
[2023-08-05] MEDS: SIMVASTATIN 40 MG TAB PO SCH (20:27)
[2023-08-05] MEDS: INSULIN ASPART PER UNIT CHARGE SC SCH (20:33)
[2023-08-05] MEDS ORDERED: NON-FORMULARY MEDICATION (Mometasone-Formoterol [Dulera] 200-5 mcg/actuation HFA aerosol i INH SCH (21:00)
[2023-08-06 06:26] LABS: Basophils # (auto) 0.03 K/uL (0.00-0.20); Basophils % (auto) 0.8 %; Eosinophils # (auto) 0.35 K/uL (0.00-0.50); Hematocrit (blood only) 34.9 % (42.0-52.0); Hemoglobin 11.4 g/dl (14.0-18.0); Immature Granulocytes # (auto) 0.01 K/uL (0.01-0.20); Immature Granulocytes % (auto) 0.3 %; Lymphocytes # (auto) 0.47 K/uL (1.20-3.40); Mean Corpuscular Hemoglobin 29.5 pg (25.0-34.0); Mean Corpuscular Hgb Conc 32.7 g/dL (32.0-36.0); Mean Corpuscular Volume 90.4 fL (80.0-100.0); Monocytes # (auto) 0.42 K/uL (0.11-0.59); Monocytes % (auto) 10.7 %; Neutrophils # (auto) 2.63 K/uL (1.40-6.50); Neutrophils % (auto) 67.2 %; Platelet Count 205 K/uL (130-400); RDW Coefficient of Variation 14.2 % (11.5-14.5); RDW Standard Deviation 46.5 fL (36.4-46.3); Red Blood Count 3.86 M/uL (4.70-6.10); White Blood Count 3.91 K/ul (4.8-10.8)
[2023-08-06 07:06] LABS: BUN Creatinine Ratio 16.9 (10-20); Calcium 8.8 mg/dl (8.6-10.3); Creatinine Clr Calc Pharmacy 69.7 ml/min; Est GFR (African American) 100.4 ml/min; Est GFR (Non-African American) 86.6 ml/min; Potassium 3.8 mmol/L (3.5-5.1)
[2023-08-06 07:33] LABS: Estimated Average Glucose 151 mg/dl; Hemoglobin A1C 6.9 % (4.5-5.6)
[2023-08-06 08:27] VITALS: RESP 18; TEMP 97.7
[2023-08-06] MEDS: LANTUS PER UNIT CHARGE SQ SCH (09:21)
[2023-08-06 12:13] VITALS: BP 149/68; PULSE 61; O2SAT 98
[2023-08-06] MEDS ORDERED: STROKE PATIENT DISCHARGE STA (13:30)
--- NOTE | 2023-08-06 17:04 | Discharge Summary ---
Discharge Summary Date of Service August 06, 2023 Notes For Next Care Provider pt placed on aspirin for suspected TIA, almost complete resolution of sx, may consider evaluation of c spine as has known c spine disease Patient's lipid panel was considerably low may consider discussion regarding simvastatin, however in the face of this most recent suspected TIA this may be postponed for 6 months Medication Changes From Visit added daily aspirin 81 mg Admission HPI Per Admitting Provider Te is a 68-year-old male with PMH of T2DM, sarcoidosis, GERD, gout, asthma, dyslipidemia, prostate cancer, urinary incontinence, and cervical spine stenosis. He presented for left-sided paresthesias from head to feet that have been present/constant since yesterday morning on 08/03. Patient reports he woke up around 6 AM yesterday and felt numbness in his left hand and arm. Approximately 1 hour later, the numbness extended to his left scalp/face all the way down to his left leg. No prior experiences like this 1. He does note he has chronic left thumb and index finger numbness (which has been present for the past several years) due to a pinched nerve in his neck. No history of TIAs/CVAs to the patient's knowledge. He denies any facial droop, slurred speech, or unilateral weakness. Patient took all of his regular morning medications today; no recent change in medications. He does not take blood thinners or aspirin. He denies any recent falls, syncopal episodes, or injuries to the head or neck. He does note that he has a pretty severe shellfish/iodine allergy (vomiting, neck swelling, and rash). He denies smoking and tobacco use. He does endorse occasional alcohol use; beer; nothing last night, but the night prior he had 1-2 beers. Denies any recent rashes or tick bites. He is hypertensive at 169/80 and mildly bradycardic at 52 bpm at time of admission; vitals otherwise stable. ED course: ROS: Patient endorses constant numbness in the left face/arm/leg. Patient denies fever, chills, night-sweats, dizziness, lightheadedness, headache, changes in vision, facial droop, slurred speech, unilateral weakness, chest pain, chest palpitations, SOB, pleuritic CP, cough, abdominal pain, N/V/D, change in urinary or bowel habits, or weakness/pain in the arms or legs bilaterally. Principal Dx & Hospital Course #1 = Principal Diagnosis (1) Stroke-like symptoms: Left-sided paresthesias from the head to feet that began the morning of 08/03 and have been constant No hx of CVA/TIAs No slurred speech, facial droop, or unilateral deficits appreciated Head CT revealed no acute intracranial abnormalities Brain MRI, brain MRA, and bilateral carotid Dopplers negative for acute changes Patient passed dysphagia screen; okay to eat Hemoglobin A1c is 6.9, lipid panel total cholesterol is 130 LDL is 52 HDL is 43 (2) Type 2 diabetes mellitus: Last A1c at 7.4% on 06/16/23 recheck is now 6 point Resume metformin Patient is normally on Lantus 17u QAM (3) Dyslipidemia: Continue simvastatin Cholesterol significantly low may wish to consider discussions about reducing the dose (4) Prostate cancer: In remission Plan Full code Discharge Exam Awake alert appropriate. Patient states almost complete resolution of his symptoms he does have some chronic numbness to his left hand around his index finger and thumb Updated Medication List Medication Instructions Recorded Confirmed Type cholecalciferol (vitamin D3) 25 1,000 units PO QAM 07/18/18 08/05/23 History mcg (1,000 unit) capsule vitamin E (dl, acetate) 180 mg 400 units PO QAM 07/18/18 08/05/23 History (400 unit) capsule pen needle, diabetic 31 gauge x #100 ea 07/13/22 08/05/23 Rx 3/16" (BD Ultra-Fine Mini Pen Needle) metformin 1,000 mg tablet See Rx Instructions .Route 10/08/22 08/05/23 Rx .COMPLEX #180 tabs fluticasone furoate 200 See Rx Instructions .Route 11/09/22 08/05/23 Rx mcg-vilanterol 25 mcg/dose .COMPLEX ##60 inhalation powder (Breo Ellipta) blood sugar diagnostic (OneTouch #100 ea 11/17/22 08/05/23 Rx Verio test strips) lancets 30 gauge (OneTouch Delcher 01/07/23 08/05/23 History Lancets) allopurinol 300 mg tablet See Rx Instructions .Route 03/11/23 08/05/23 Rx .COMPLEX #90 tabs albuterol sulfate 90 mcg/actuation 2 puff inhalation Q4H PRN 06/21/23 08/05/23 Rx aerosol inhaler shortness of breath or wheezing #6.7 grams mometasone-formoterol HFA 200 2 puff inhalation BID #1 inhaler 06/21/23 08/05/23 Rx mcg-5 mcg/actuation aerosol inhaler (Dulera) simvastatin 40 mg tablet 40 mg PO QPM #90 tabs 07/08/23 08/05/23 Rx insulin glargine 100 unit/mL (3 17 unit (0.17 mL) subcut QAM #15 mL 07/21/23 08/05/23 Rx mL) subcutaneous pen (Lantus Solostar U-100 Insulin) aspirin 81 mg chewable tablet 81 mg PO DAILY #30 tabs 08/06/23 Rx Hospital Stay Data Consultations 08/05/23 13:29 ED Decision to Admit Stat Diagnostic Imagining Performed 08/05/23 11:19 CT head/brain wo con Stat 08/05/23 14:09 MR brain wo con Routine 08/05/23 14:10 MR angio head wo con Urgent US carotid doppler BI Routine Pending Results Patient Have Any Pending Studies at Discharge: No Discharge Instructions Given to Patient (Per Discharging Provider) please follow up with neurology take a baby aspirin a day always return if worse Total Time Total Time Spent Total Time Spent (In Minutes): It required greater than 30 minutes to prepare this patient for discharge. 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
--- NOTE | 2023-08-10 10:47 | Pharmacy Report ---
Pharmacist Stroke Counseling - Date of Service August 10, 2023 - Scope: Pharmacy has been consulted to provide medication discharge counseling for this patient admitted with [ischemic stroke] [hemorrhagic stroke] [transient ischemic attack] as per the Pharmacist Discharge Counseling for Stroke Patients Protoc . - Medications on Discharge: Home Medications Medication Instructions Recorded Confirmed cholecalciferol (vitamin D3) 25 1,000 units PO QAM 07/18/18 08/05/23 mcg (1,000 unit) capsule vitamin E (dl, acetate) 180 mg 400 units PO QAM 07/18/18 08/05/23 (400 unit) capsule lancets 30 gauge (OneTouch Delica 01/07/23 08/05/23 Lancets) New Rx's Medication Instructions Recorded pen needle, diabetic 31 gauge x #100 ea 07/13/22 3/" (BD Ultra-Fine Mini Pen Needle) metformin 1,000 mg tablet See Rx Instructions .Route 10/08/22 .COMPLEX #180 tabs fluticasone furoate 200 See Rx Instructions .Route 11/09/22 mcg-vilanterol 25 mcg/dose .COMPLEX ##60 inhalation powder (Breo Ellipta) blood sugar diagnostic (OneTouch #100 ea 11/17/22 Verio test strips) allopurinol 300 mg tablet See Rx Instructions .Route 03/11/23 .COMPLEX #90 tabs albuterol sulfate 90 mcg/actuation 2 puff inhalation Q4H PRN 06/21/23 aerosol inhaler shortness of breath or wheezing #6.7 grams mometasone-formoterol HFA 200 2 puff inhalation BID #1 inhaler 06/21/23 mcg-5 mcg/actuation aerosol inhaler (Dulera) simvastatin 40 mg tablet 40 mg PO QPM #90 tabs 07/08/23 insulin glargine 100 unit/mL (3 17 unit (0.17 mL) subcut QAM #15 mL 07/21/23 mL) subcutaneous pen (Lantus Solostar U-100 Insulin) aspirin 81 mg chewable tablet 81 mg PO DAILY #30 tabs 08/06/23 - Action: The above medications, specifically ones for stroke treatment/prophylaxis, have been reviewed in detail with the patient and/or patient tax representative(s) prior to discharge. This includes indication, common adverse reactions, drug interactions, and medication administration. Medication counseling has been employed using the teach-back method to ensure understanding. - Outcome: The patient and/or patient tax representative(s) have demonstrated understanding of the medications. Additional comments: Spoke with Te this morning. He has picked up his new medication (baby aspirin) and has begun taking. Reviewed aspirin side effects (bleeding, upset stomach). Reviewed importance of taking cholesterol and diabetes medications for stroke prevention. All questions answered. Thank you for allowing pharmacy to be involved in the care of this patient. Please call [phone] with any additional questions
== END 2023-08-06 15:10 | disposition home or self-care (01) ==
LOC: EDINP 11:07 → ED 11:07 → SUATTDRO 14:18 → EDINP 17:14 → 4W 08-06 01:31
DX: R20.2 Paresthesia of skin; Z79.51 Long term (current) use of inhaled steroids; Z88.0 Allergy status to penicillin; Z79.84 Long term (current) use of oral hypoglycemic drugs; E11.9 Type 2 diabetes mellitus without complications; Z79.899 Other long term (current) drug therapy; E78.5 Hyperlipidemia, unspecified; Z85.46 Personal history of malignant neoplasm of prostate; K21.9 Gastro-esophageal reflux disease without esophagitis; J45.909 Unspecified asthma, uncomplicated; Z79.4 Long term (current) use of insulin